=== PATIENT | female | born 1960 | race Caucasian/White ===

== ENCOUNTER 2016-08-28 | Outpatient (CLI) | payer MEDICAID | END 2016-08-28 00:09 | disposition critical access hospital (66) | CPT/HCPCS: A0425; A0427 ==

== ENCOUNTER 2016-08-28 00:28 | Emergency (ER) | payer MEDICAID ==
[2016-08-28] MEDS ORDERED: KETOROLAC 60 MG/2 ML VIAL IVP STA (02:08)
[2016-08-28] MEDS ORDERED: PROMETHAZINE INJ 12.5 MG in SODIUM CHLORIDE 0.9% 50 ML IV STA (02:08)
[2016-08-28] MEDS ORDERED: SODIUM CHLORIDE 0.9% 1,000 ML IV ONE (02:08)
[2016-08-28] MEDS ORDERED: HYDROmorphone 1 MG/ML SYRINGE IVP STA ×3 (02:09→04:10)
[2016-08-28] MEDS ORDERED: ONDANSETRON 4 MG/2 ML VIAL IVP STA (02:10)
[2016-08-28] MEDS ORDERED: PROMETHAZINE 25 MG/1 ML VIAL ONE (02:21)
[2016-08-28] MEDS ORDERED: HYDROmorphone 1 MG/ML SYRINGE ONE ×3 (02:21→04:12)
[2016-08-28] MEDS ORDERED: KETOROLAC 30 MG/ML VIAL ONE (02:21)
[2016-08-28] MEDS ORDERED: ONDANSETRON 4 MG/2 ML VIAL ONE (02:21)
[2016-08-28] MEDS ORDERED: SODIUM CHLORIDE 0.9% 500 ML IV ONE (04:09)
[2016-08-28] MEDS ORDERED: ACETAMINOPHEN 1,000 MG/100 ML 100 ML IV STA (04:12)
[2016-08-28] MEDS ORDERED: ACETAMINOPHEN 1,000 MG/100 ML 100 ML IV ONE (04:30)
== END 2016-08-28 05:09 | disposition home or self-care (01) ==
DX: G43.909 Migraine, unspecified, not intractable, without status migrainosus (principal); I10 Essential (primary) hypertension; M06.9 Rheumatoid arthritis, unspecified
CPT/HCPCS: 36415; 80053; 83690; 85025; 96365; 96375; 96376; 99284; J0131; J1170

== ENCOUNTER 2016-09-09 09:21 | Day surgery (SDC) | payer MEDICAID ==
[2016-09-09] MEDS ORDERED: fentaNYL 250 MCG/5 ML VIAL IVP ONE (11:23)
[2016-09-09] MEDS ORDERED: MIDAZOLAM 2 MG/2 ML VIAL IVP ONE (11:23)
[2016-09-09] MEDS ORDERED: LACTATED RINGERS 1,000 ML IV ONE ×2 (11:29→12:05)
== END 2016-09-09 09:22 | disposition home or self-care (01) ==
PROC: 0DBN8ZZ Excision of Sigmoid Colon, Via Natural or Artificial Opening Endoscopic (ICD-10-PCS; principal; 2016-09-09 11:45)
DX: Z12.11 Encounter for screening for malignant neoplasm of colon (principal); D12.5 Benign neoplasm of sigmoid colon; Z87.891 Personal history of nicotine dependence
CPT/HCPCS: 45380; J3010; J7120

== ENCOUNTER 2016-09-15 17:04 | Emergency (ER) | payer MEDICAID ==
[2016-09-15] MEDS ORDERED: diphenhydrAMINE INJ 50 MG/ML VIAL IVP STA (17:18)
[2016-09-15] MEDS ORDERED: PROCHLORPERAZINE 10 MG/2 ML VIAL IVP STA (17:18)
[2016-09-15] MEDS ORDERED: KETOROLAC 60 MG/2 ML VIAL IVP STA (17:18)
[2016-09-15] MEDS ORDERED: MAGNESIUM SULFATE 2 GRAM 50 ML IV ONE ×2 (17:18→17:29)
[2016-09-15] MEDS ORDERED: SODIUM CHLORIDE 0.9% 1,000 ML IV ONE (17:18)
[2016-09-15] MEDS ORDERED: KETOROLAC 30 MG/ML VIAL ONE (17:29)
[2016-09-15] MEDS ORDERED: PROCHLORPERAZINE 10 MG/2 ML VIAL ONE (17:29)
[2016-09-15] MEDS ORDERED: diphenhydrAMINE INJ 50 MG/ML VIAL ONE (17:29)
== END 2016-09-15 18:22 | disposition home or self-care (01) ==
DX: G43.909 Migraine, unspecified, not intractable, without status migrainosus (principal)

== ENCOUNTER 2016-10-13 15:52 | Emergency (ER) | payer MEDICAID ==
[2016-10-13] MEDS ORDERED: PROMETHAZINE 25 MG/1 ML VIAL IM STA (16:27)
[2016-10-13] MEDS ORDERED: KETOROLAC 60 MG/2 ML VIAL IM STA (16:27)
[2016-10-13] MEDS ORDERED: ONDANSETRON ODT 4 MG TABLET TL STA (16:28)
[2016-10-13] MEDS ORDERED: DEXAMETHASONE 10 MG/ML VIAL PO STA (16:28)
[2016-10-13] MEDS ORDERED: PROMETHAZINE 25 MG/1 ML VIAL ONE (16:29)
[2016-10-13] MEDS ORDERED: ONDANSETRON ODT 4 MG TABLET ONE (16:30)
[2016-10-13] MEDS ORDERED: KETOROLAC 60 MG/2 ML VIAL ONE (16:30)
[2016-10-13] MEDS ORDERED: DEXAMETHASONE 10 MG/ML VIAL ONE (16:30)
[2016-10-13] MEDS ORDERED: oxyCOD/ACETAMIN 5 MG/325 MG TABLET PO STA (17:57)
[2016-10-13] MEDS ORDERED: oxyCOD/ACETAMIN 5 MG/325 MG TABLET PO ONE (18:00)
== END 2016-10-13 18:10 | disposition home or self-care (01) ==
DX: R51 Headache (principal); M79.2 Neuralgia and neuritis, unspecified; B02.9 Zoster without complications; R11.2 Nausea with vomiting, unspecified
CPT/HCPCS: 96372; 99283; 99284; A9270; Q0162

== ENCOUNTER 2016-11-18 00:15 | Outpatient (CLI) | payer MEDICAID | END 2016-11-18 00:16 | disposition critical access hospital (66) | DX: G43.909 Migraine, unspecified, not intractable, without status migrainosus (principal) | CPT/HCPCS: A0425; A0429 ==

== ENCOUNTER 2016-11-18 00:35 | Emergency (ER) | payer MEDICAID ==
[2016-11-18] MEDS ORDERED: KETOROLAC 60 MG/2 ML VIAL IM STA (01:43)
[2016-11-18] MEDS ORDERED: HYDROcod/ACETAM 5/325 MG TABLET PO STA (01:43)
[2016-11-18] MEDS ORDERED: KETOROLAC 60 MG/2 ML VIAL ONE (01:45)
[2016-11-18] MEDS ORDERED: HYDROcod/ACETAM 5/325 MG TABLET ONE (01:45)
[2016-11-18] MEDS ORDERED: oxyCODONE 5 MG TABLET PO STA (03:55)
[2016-11-18] MEDS ORDERED: oxyCODONE 5 MG TABLET ONE (03:57)
== END 2016-11-18 04:08 | disposition home or self-care (01) ==
DX: R51 Headache (principal); H57.12 Ocular pain, left eye
CPT/HCPCS: 70450; 96372; 99284; A9270

== ENCOUNTER 2017-04-13 20:17 | Outpatient (CLI) | payer MEDICAID | END 2017-04-13 20:18 | disposition critical access hospital (66) | LOC: EMS 20:17 | PROVIDERS: ATTEND Surgery | DX: M79.601 Pain in right arm (principal) | CPT/HCPCS: A0425; A0429 ==

== ENCOUNTER 2017-04-13 20:39 | Emergency (ER) | payer MEDICAID ==
[2017-04-13] MEDS ORDERED: KETOROLAC 60 MG/2 ML VIAL IM STA (20:47)
[2017-04-13 20:49] VITALS: BP 131/76
[2017-04-13] MEDS ORDERED: KETOROLAC 60 MG/2 ML VIAL ONE (20:54)
--- NOTE | 2017-04-13 21:04 | ED Physician Documentation ---
PD HPI UPPER EXT INJURY - Stated complaint Stated Complaint: RT HAND PAIN - Chief complaint Chief Complaint: Ext Problem - History obtained from History obtained from: Patient, EMS - History of Present Illness Location: Right, Wrist Type of injury: Twist Where injury occurred: Home Timing - onset: Chronic Timing - duration: Months Timing - details: Gradual onset, Still present Improved by: Immobilization Worsened by: Moving, Palpating Associated symptoms: Tingling, Swelling Contributing factors: Prior ortho surgery Similar symptoms before: Work up / diagnostics, Treatment Recently seen: Clinic - Additonal information Additional information: Patient is a 56 year old female who is presenting to the emergency department for right wrist pain. patient states that she had trauma in there years ago. Patient states that she has had worsening pain in her wrist over the last month with increased swelling. ems state that patient had been drinking today. they state that she saw her pmd who told her to follow up outpatient. Patient states she called the ambulance since she didn't have a ride. Review of Systems Constitutional: reports: Myalgias. denies: Fever, Chills Eyes: denies: Loss of vision, Decreased vision Ears: denies: Ear pain, Drainage/discharge Nose: denies: Congestion Throat: denies: Dental pain / toothache, Sore throat Respiratory: denies: Cough GI: denies: Nausea, Vomiting : denies: Dysuria Skin: denies: Rash, Lesions, Abrasion (s) Musculoskeletal: reports: Extremity pain, Joint pain, Joint swelling Neurologic: reports: Numbness. 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 : None HEENT: None Psych: Anxiety Musculoskeletal: Chronic back pain Derm: None - Past Surgical History Past Surgical History: Yes General: Cholecystectomy, Appendectomy, Colonoscopy /CRUSHER PLANT OPERATOR: Hysterectomy - Present Medications Home Medications: Ambulatory Orders Medication Instructions Recorded Confirmed ALPRAZolam [Xanax] 0.25 mg PO Q6H 09/08/16 04/13/17 Hydrocodone/Acetaminophen 1 tab PO Q6HR PRN 09/08/16 04/13/17 [Hydrocodon-Acetaminoph 7.5-325] Ascorbic Acid [Vitamin C] 1,000 mg PO DAILY 09/09/16 04/13/17 [place]-3/Dha/Epa/Fish Oil [Fish Oil 1,000 mg PO DAILY 09/09/16 04/13/17 1,000 mg Softgel] Vitamin B Complex/Folic Acid 1 mg PO DAILY 09/09/16 04/13/17 [Vitamin B-100 Complex Tablet] - Allergies Allergies/Adverse Reactions: Allergies Allergy/AdvReac Type Severity Reaction Status Date / Time adhesive Allergy Intermediate Hives Verified 04/13/17 20:49 codeine [Codeine] Allergy Hives Verified 04/13/17 20:49 Sulfa (Sulfonamide Allergy Hives Verified 04/13/17 20:49 Antibiotics) chocolate AdvReac Intermediate migraine Uncoded 04/13/17 20:49 - Social History Does the pt smoke?: No Smoking Status: Never smoker Does the pt drink ETOH?: Yes Does the pt have substance abuse?: No - Immunizations Immunizations are current?: Yes - POLST Patient has POLST: No PD ED PE NORMAL - Vitals Vital signs reviewed: Yes - General General: Alert and oriented X 3, No acute distress - HEENT HEENT: Atraumatic, PERRL - Neck Neck: Supple, no meningeal sign - Cardiac Cardiac: RRR, No murmur - Respiratory Respiratory: No respiratory distress, Clear bilaterally - Abdomen Abdomen: Soft, Non tender - Neuro Neuro: Alert and oriented X 3, No motor deficit, No sensory deficit, Normal speech - Psych Psych: Normal mood, Normal affect PD ED PE EXPANDED - Derm Derm: Other (ecchymosis on wrist) - Extremities Extremities: Right wrist (tenderness, swelling and some ecchymosis of wrist) Results - Vitals Vitals: Vital Signs - 24 hr 04/13/17 20:45 Temperature 36.9 C Heart Rate 102 H Respiratory 20 Rate Blood Pressure 131/76 H O2 Saturation 96 Oxygen O2 Source Room air - Rads (name of study) wrist right Radiology: Final report received (severe first cmc joint osteoarthritis) PD MEDICAL DECISION MAKING - ED course Complexity details: reviewed old records, reviewed results, re-evaluated patient , considered differential, d/w patient ED course: Patient was seen and examined at bedside. Patient was treated with toradol for pain and sent for imaging. When patient returned the results were reviewed. Patient was found to have severe arthritis but no acute abnormality. Patient was placed in a velcro brace for comfort and was stable for discharge with outpatient follow up. Departure - Departure Disposition: 01 Home, Self Care Clinical Impression: Arthritis Condition: Good Instructions: ANTI-INFLAMMATORY, General, ED Arthritis Rheumatoid Follow-Up: Adam Gómez MD [Primary Care Provider] - Within 1 week Comments: Your symptoms today are being caused by arthritis. It is a chronic issue and is unlikely to improve. You should continue to ice the area and take motrin and tylenol for pain. You can wear the wrist brace for comfort. You should follow up with your doctor for further evaluation and care.
--- NOTE | 2017-04-13 21:43 | XRAY Preliminary Report ---
Exam: XR Wrist 4 View RT IMPRESSION: 1. Severe first CMC joint osteoarthritis. 2. No evidence of acute osseous abnormality. [facility] SITE ID: [id number]
--- NOTE | 2017-04-13 21:46 | XRAY Report ---
EXAM: RIGHT WRIST RADIOGRAPHY EXAM DATE: 04/13/2017 09:32 PM. CLINICAL HISTORY: Wrist pain. COMPARISON: None. TECHNIQUE: 4 views. FINDINGS: Bones: Normal. No fractures or bone lesions. Joints: Normal alignment. Severe joint space narrowing and proliferative changes are present in the f irst CMC joint. Soft Tissues: Normal. No soft tissue swelling. IMPRESSION: 1. Severe first CMC joint osteoarthritis. 2. No evidence of acute osseous abnormality. [facility] Referring Provider Line: [phone] SITE ID: [id number]
== END 2017-04-13 22:02 | disposition home or self-care (01) ==
LOC: EDUNIT# → ED 20:39
DX: M13.831 Other specified arthritis, right wrist (principal)
CPT/HCPCS: 96372; 99283; 99284

== ENCOUNTER 2017-05-29 20:10 | Emergency (ER) | payer MEDICAID ==
[2017-05-29] MEDS ORDERED: IPRATROPIUM/ALBUTEROL 3 ML NEB INH STA (20:32)
[2017-05-29] MEDS ORDERED: IPRATROPIUM/ALBUTEROL 3 ML NEB INH ONE (21:00)
[2017-05-29] MEDS ORDERED: ALBUTEROL NEB 2.5 MG/3 ML INH STA (21:28)
--- NOTE | 2017-05-29 21:56 | XRAY Preliminary Report ---
Exam: XR CHEST 2 VIEW PA/LAT IMPRESSION: No acute disease. [facility] SITE ID: [id number]
[2017-05-29] MEDS ORDERED: KETOROLAC 60 MG/2 ML VIAL IM STA (21:57)
--- NOTE | 2017-05-29 21:59 | XRAY Report ---
EXAM: CHEST RADIOGRAPHY EXAM DATE: 05/29/2017 09:23 PM. CLINICAL HISTORY: Productive cough. COMPARISON: 03/27/2016. TECHNIQUE: 2 views. FINDINGS: Lungs/Pleura: No definite localized infiltrate, consolidation, effusion, or pneumothorax. Mediastinum: Heart and mediastinal contours are unremarkable. Other: Degenerative changes. IMPRESSION: No acute disease. [facility] Referring Provider Line: [phone] SITE ID: [id number]
--- NOTE | 2017-05-29 22:00 | ED Physician Documentation ---
PD HPI DYSPNEA - Stated complaint Stated Complaint: SOA/COUGH - Chief complaint Chief Complaint: Resp - History obtained from History obtained from: Patient - History of Present Illness Timing - onset: How many days ago (3) Timing - details: Gradual onset, Still present Improved by: O2, Inhaler/neb, Steroids Associated symptoms: Cough, Wheezing. No: Fever, Chest pain / discomfort, Palpitations, Diaphoresis Similar symptoms before: Work up / diagnostics, Treatment, Follow up Recently seen: Clinic, Emergency Dept - Additional information Additional information: Patient is a 56 year old female with a history of copd who is presenting to the emergency department for wheezing and cough. Patient states that it has been going on for the last few days. Patient states that she is already on a steroid taper. Patient denies any fever or chills and states that she is no longer wheezing. Review of Systems Constitutional: denies: Fever, Chills Eyes: reports: Reviewed and negative Ears: denies: Ear pain, Drainage/discharge Nose: denies: Rhinorrhea / runny nose, Congestion, Sinus pressure / pain Throat: reports: Reviewed and negative Cardiac: denies: Chest pain / pressure, Palpitations Respiratory: reports: Cough, Wheezing GI: reports: Abdominal Pain. 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 : None HEENT: None Psych: Anxiety Musculoskeletal: Chronic back pain Derm: None - Past Surgical History Past Surgical History: Yes General: Cholecystectomy, Appendectomy, Colonoscopy /LAPPING MACHINE SET UP OPERATOR: Hysterectomy - Present Medications Home Medications: Ambulatory Orders Medication Instructions Recorded Confirmed ALPRAZolam [Xanax] 0.25 mg PO Q6H 09/08/16 04/13/17 Hydrocodone/Acetaminophen 1 tab PO Q6HR PRN 09/08/16 04/13/17 [Hydrocodon-Acetaminoph 7.5-325] Ascorbic Acid [Vitamin C] 1,000 mg PO DAILY 09/09/16 04/13/17 [place]-3/Dha/Epa/Fish Oil [Fish Oil 1,000 mg PO DAILY 09/09/16 04/13/17 1,000 mg Softgel] Vitamin B Complex/Folic Acid 1 mg PO DAILY 09/09/16 04/13/17 [Vitamin B-100 Complex Tablet] Albuterol Sulfate [Proventil Hfa 1 - 2 puffs INH Q4H PRN #1 inhaler 05/29/17 Inhaler] - Allergies Allergies/Adverse Reactions: Allergies Allergy/AdvReac Type Severity Reaction Status Date / Time adhesive Allergy Intermediate Hives Verified 05/29/17 20:23 codeine [Codeine] Allergy Hives Verified 05/29/17 20:23 Sulfa (Sulfonamide Allergy Hives Verified 05/29/17 20:23 Antibiotics) chocolate AdvReac Intermediate migraine Uncoded 05/29/17 20:23 - Social History Does the pt smoke?: No Smoking Status: Former smoker Does the pt drink ETOH?: Yes Does the pt have substance abuse?: No - Immunizations Immunizations are current?: Yes - POLST Patient has POLST: No PD ED PE NORMAL - Vitals Vital signs reviewed: Yes - General General: Alert and oriented X 3 - HEENT HEENT: Atraumatic, PERRL, Moist mucous membranes - Neck Neck: Supple, no meningeal sign, No JVD - Cardiac Cardiac: RRR, No murmur - Derm Derm: Normal color, Warm and dry, No rash - Extremities Extremities: No deformity, Normal ROM s pain, No edema, No calf tenderness / cord - Neuro Neuro: Alert and oriented X 3, No motor deficit, No sensory deficit, Normal speech - Psych Psych: Normal mood, Normal affect PD ED PE EXPANDED - Respiratory Respiratory: Accessory mm use, Wheezing, Right upper lobe, Left upper lobe. No : Retractions - Abdomen Abdomen: Tender to palpation, LLQ (mild tenderness to palpation of llq, also worse with leg lifts). No: Rebound, Guarding Results - Vitals Vitals: Vital Signs - 24 hr 05/29/17 05/29/17 05/29/17 20:23 20:59 22:10 Temperature 36.8 C Heart Rate 81 82 84 Respiratory 18 16 18 Rate Blood Pressure 115/69 127/63 O2 Saturation 96 94 05/29/17 22:31 Temperature Heart Rate 102 H Respiratory 18 Rate Blood Pressure 131/70 H O2 Saturation 100 Oxygen O2 Source Room air - Rads (name of study) chest x-ray Radiology: Final report received (no acute disease process) PD MEDICAL DECISION MAKING - ED course Complexity details: reviewed old records, reviewed results, re-evaluated patient , considered differential, d/w patient, d/w family ED course: Patient was seen and examined at bedside. Patient was started on three duonebs. imaging was ordered. when patient returned from imaging the results were reviewed and there was no infiltrate appreciated. Patient was still wheezing and treated with additional nebulizer treatments. After the treatments patient was re-evaluated. Patient stated that she was feeling much better and wanted to go home. She had minimal wheezes bilaterally but was 100% on room air. Patient was stable for discharge with outpatient follow up. Departure - Departure Disposition: Home, Self Care Clinical Impression: Moderate COPD (chronic obstructive pulmonary disease) Condition: Good Instructions: ED COPD Flare Follow-Up: Adam Gómez MD [Primary Care Provider] - Within 3 Days Prescriptions: Albuterol Sulfate [Proventil Hfa Inhaler] 1 - 2 puffs INH Q4H PRN #1 inhaler PRN Reason: Shortness Of Air/Wheezing Comments: Your symptoms today are being caused by an acute flare up of your copd. You should finish your course of steroids. In the acute phase you can use your inhaler every two hours as needed. You should followup with your doctor on thursday for further evaluation and care. You may return to the emergency department at any time for new, worsening or uncontrollable symptoms.
[2017-05-29] MEDS ORDERED: ALBUTEROL NEB 2.5 MG/3 ML INH ONE (22:03)
[2017-05-29] MEDS ORDERED: KETOROLAC 60 MG/2 ML VIAL ONE (22:24)
[2017-05-29 22:32] VITALS: BP 131/70
== END 2017-05-29 22:47 | disposition home or self-care (01) ==
LOC: ED 20:10
DX: J44.9 Chronic obstructive pulmonary disease, unspecified (principal); Z87.891 Personal history of nicotine dependence
CPT/HCPCS: 71020; 94640; 96372; 99283; J7613; J7620

== ENCOUNTER 2017-09-15 17:30 | Outpatient (CLI) | payer MEDICAID | END 2017-09-15 17:31 | disposition critical access hospital (66) | LOC: EMS 17:30 | PROVIDERS: ATTEND Surgery | DX: R55 Syncope and collapse (principal); R07.9 Chest pain, unspecified; R05 Cough; R11.0 Nausea | CPT/HCPCS: A0425; A0427 ==

== ENCOUNTER 2017-09-15 17:53 | Inpatient (IN) | payer MEDICAID ==
--- NOTE | 2017-09-15 18:24 | ED Physician Documentation ---
PD HPI URI - Stated complaint Stated Complaint: COUGH - Chief complaint Chief Complaint: Resp - History obtained from History obtained from: Patient, EMS - History of Present Illness Timing - onset: How many hours ago (1), Today Timing details: Abrupt onset (she was standing in the kitchen and then next aware of awakening on the floor. [place] sore in arms. Had been incontinent of urine. No tongue injuries. Had felt okay earlier in the day. After awakening, did hav esome repetitive coughing, but no dyspnea per se. No fevers nor headache. Remote history of seizures about 18 years ago and has been off seizure meds for over 10 years or more.) Associated symptoms: Dry cough. No: Fever, Chills, Nasal congestion, Chest pain , Dyspnea Contributing factors: No: Sick contact, Travel, Immunocompromised Similar symptoms before: Has not had sx before Recently seen: Not recently seen Review of Systems Constitutional: denies: Fever, Chills, Myalgias Nose: denies: Rhinorrhea / runny nose, Congestion Throat: denies: Sore throat Cardiac: denies: Chest pain / pressure Respiratory: reports: Cough. denies: Dyspnea Skin: denies: Rash, Lesions Musculoskeletal: denies: Neck pain, Back pain Neurologic: reports: Seizure (concerned about having seizure today. had had some alcohol today, denies drug use. 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 : None HEENT: None Psych: Anxiety Musculoskeletal: Chronic back pain Derm: None - Past Surgical History Past Surgical History: Yes General: Cholecystectomy, Appendectomy, Colonoscopy /MECHANICAL FITTER: Hysterectomy - Present Medications Home Medications: Ambulatory Orders Medication Instructions Recorded Confirmed ALPRAZolam [Xanax] 0.25 mg PO Q6H 09/08/16 04/13/17 Hydrocodone/Acetaminophen 1 tab PO Q6HR PRN 09/08/16 04/13/17 [Hydrocodon-Acetaminoph 7.5-325] Ascorbic Acid [Vitamin C] 1,000 mg PO DAILY 09/09/16 04/13/17 [place]-3/Dha/Epa/Fish Oil [Fish Oil 1,000 mg PO DAILY 09/09/16 04/13/17 1,000 mg Softgel] Vitamin B Complex/Folic Acid 1 mg PO DAILY 09/09/16 04/13/17 [Vitamin B-100 Complex Tablet] Albuterol Sulfate [Proventil Hfa 1 - 2 puffs INH Q4H PRN #1 inhaler 05/29/17 Inhaler] - Allergies Allergies/Adverse Reactions: Allergies Allergy/AdvReac Type Severity Reaction Status Date / Time adhesive Allergy Intermediate Hives Verified 05/29/17 20:23 codeine [Codeine] Allergy Hives Verified 05/29/17 20:23 Sulfa (Sulfonamide Allergy Hives Verified 05/29/17 20:23 Antibiotics) chocolate AdvReac Intermediate migraine Uncoded 05/29/17 20:23 - Social History Does the pt smoke?: No Smoking Status: Never smoker Does the pt drink ETOH?: Yes Does the pt have substance abuse?: No - Immunizations Immunizations are current?: Yes - POLST Patient has POLST: No PD ED PE NORMAL - Vitals Vital signs reviewed: Yes - General General: Alert and oriented X 3, No acute distress, Well developed/nourished - HEENT HEENT: Ears normal, Pharynx benign, Other (no tongue injuries. ) - Neck Neck: Supple, no meningeal sign, No adenopathy - Cardiac Cardiac: RRR, No murmur - Respiratory Respiratory: Clear bilaterally - Abdomen Abdomen: Soft, Non tender - Back Back: No CVA TTP - Derm Derm: Normal color, Warm and dry - Extremities Extremities: No deformity, No tenderness to palpate, Normal ROM s pain, No edema , No calf tenderness / cord - Neuro Neuro: Alert and oriented X 3, slip sheeter 2-12 intact, No motor deficit, No sensory deficit, Normal speech Eye Opening: Spontaneous Motor: Obeys Commands Verbal: Oriented GCS Score: 15 - Psych Psych: Normal mood, Normal affect Results - Vitals Vitals: Vital Signs - 24 hr 09/15/17 09/15/17 09/15/17 17:54 19:31 19:41 Temperature 36.5 C Heart Rate 97 96 Respiratory 18 20 Rate Blood Pressure 114/75 118/90 H O2 Saturation 97 98 09/15/17 09/15/17 09/15/17 20:01 20:34 21:06 Temperature 37 C Heart Rate 102 H 95 89 Respiratory 16 16 22 Rate Blood Pressure 130/92 H 117/70 95/62 O2 Saturation 96 97 96 09/15/17 22:20 Temperature Heart Rate 93 Respiratory 15 Rate Blood Pressure 106/65 O2 Saturation 96 Oxygen O2 Source Room air - Labs Labs: Laboratory Tests 09/15/17 09/15/17 09/15/17 19:32 19:32 20:08 WBC 5.6 RBC 3.83 L Hgb 12.6 Hct 37.4 MCV 97.6 MCH 32.9 H MCHC 33.7 RDW 13.3 Plt Count 168 MPV 7.4 L Neut # 2.9 Lymph # 2.1 Williams # 0.3 Eos # 0.2 Baso # 0.0 Absolute Nucleated RBC 0.00 Nucleated RBC % 0.0 Sodium 139 Potassium 3.8 Chloride 109 Carbon Dioxide 18 L Anion Gap 12.0 BUN 14 Creatinine 0.5 Estimated GFR (MDRD) 127 Glucose 95 Calcium 8.0 L Magnesium 2.0 Total Bilirubin 0.2 AST 35 ALT 38 Alkaline Phosphatase 59 Total Protein 7.1 Albumin 4.1 Globulin 3.0 Albumin/Globulin Ratio 1.4 Lipase 26 Urine Color YELLOW Urine Clarity CLEAR Urine pH 6.0 Ur Specific [place] 1.020 Urine Protein NEGATIVE Urine Glucose (UA) NEGATIVE Urine Ketones NEGATIVE Urine Occult Blood NEGATIVE Urine Nitrite POSITIVE H Urine Bilirubin NEGATIVE Urine Urobilinogen 0.2 (NORMAL) Ur Leukocyte Esterase NEGATIVE Urine RBC None Seen Urine WBC 0-3 Ur Squamous Epith Cells NONE SEEN Urine Bacteria Many H Ur Microscopic Review INDICATED Urine Culture Comments INDICATED Urine Opiates Screen NEGATIVE Ur Oxycodone Screen NEGATIVE Urine Methadone Screen NEGATIVE Ur Propoxyphene Screen NEGATIVE Ur Barbiturates Screen NEGATIVE Ur Tricyclics Screen NEGATIVE Ur Phencyclidine Scrn NEGATIVE Ur Amphetamine Screen NEGATIVE U Methamphetamines Scrn NEGATIVE U Benzodiazepines Scrn POSITIVE H Urine Cocaine Screen NEGATIVE U Cannabinoids Screen NEGATIVE Ethyl Alcohol 187.9 - Rads (name of study) head CT Radiology: Prelim report reviewed (no acute process), EMP read contemporaneously chest xray Radiology: Prelim report reviewed (no infiltrates) PD MEDICAL DECISION MAKING - ED course Complexity details: reviewed results, re-evaluated patient (She had seizure here in ED that was self-limited and lasted less than a minute. It did appear a true seizure generalized. Had post ictal phase then slowly aroused and became alert. This happened abain about 20 minutes later. Given Ativan IV and then Keppra loading dose 500 mg. I talked with Neurology at [facility], who agreed with Aly, and would give another 500 mg, then to oral dose 750 mg BID. He advised overnight admission and treatment. He did not see need for transfer at this time. ), considered differential, d/w patient Departure - Departure Disposition: 66 [facility] DC/Xfer Clinical Impression: Cough, Alcohol use disorder, Seizures, generalized convulsive Condition: Stable Record reviewed to determine appropriate education?: Yes
[2017-09-15] MEDS ORDERED: SODIUM CHLORIDE 0.9% 1,000 ML IV ONE (19:04)
[2017-09-15] MEDS ORDERED: MIDAZOLAM 2 MG/2 ML VIAL IVP STA (19:20)
[2017-09-15 19:39] LABS: BASOPHILS % (AUTO) 0.9 %; EOSINOPHILS # (AUTO) 0.2 10^3/uL (0.0-0.7); EOSINOPHILS % (AUTO) 2.8 %; HGB - HEMOGLOBIN 12.6 g/dL (12.0-16.0); LYMPHOCYTES # (AUTO) 2.1 10^3/uL (1.5-3.5); LYMPHOCYTES % (AUTO) 37.7 %; MEAN CORPUSCULAR HEMOGLOBIN 32.9 pg (27.0-31.0); MEAN CORPUSCULAR HGB CONC 33.7 g/dL (32.0-36.0); MEAN CORPUSCULAR VOLUME 97.6 fL (81.0-99.0); MEAN PLATELET VOLUME 7.4 fL (7.9-10.8); MONOCYTES # (AUTO) 0.3 10^3/uL (0.0-1.0); MONOCYTES % (AUTO) 6.2 %; NEUTROPHILS # (AUTO) 2.9 10^3/uL (1.5-6.6); NEUTROPHILS % (AUTO) 52.4 %; PLT - PLATELET COUNT 168 10^3/uL (130-450); RED BLOOD COUNT 3.83 10^6/uL (4.20-5.40); RED CELL DISTRIBUTION WIDTH 13.3 % (12.0-15.0); WHITE BLOOD COUNT 5.6 x10^3/uL (4.8-10.8)
[2017-09-15] MEDS ORDERED: LORazepam 2 MG/ML VIAL IVP STA ×4 (19:44→23:24)
[2017-09-15 19:53] LABS: ALBUMIN 4.1 g/dL (3.2-5.5); ALBUMIN/GLOBULIN RATIO 1.4 (1.0-2.2); BILIRUBIN,TOTAL 0.2 mg/dL (0.2-1.0); CREATININE 0.5 mg/dL (0.4-1.0); TOTAL PROTEIN 7.1 g/dL (6.7-8.2)
[2017-09-15 20:24] LABS: MUDS CUTOFF CONCENTRATIONS CUTOFF CONC BELOW:
[2017-09-15 20:29] LABS: BILIRUBIN,URINE NEGATIVE (NEGATIVE); GLUCOSE, URINE (UA) NEGATIVE (NEGATIVE); KETONES,URINE (UA) NEGATIVE (NEGATIVE); LEUKOCYTE ESTERASE, URINE NEGATIVE (NEGATIVE); NITRITE,URINE POSITIVE (NEGATIVE); OCCULT BLOOD,URINE NEGATIVE (NEGATIVE); PROTEIN,URINE NEGATIVE (NEGATIVE); UROBILINOGEN,URINE 0.2 (NORMAL) E.U./dL (NORMAL)
[2017-09-15 20:30] LABS: CLARITY,URINE CLEAR (CLEAR)
[2017-09-15] MEDS ORDERED: levETIRAcetam INJ 500 MG in SODIUM CHLORIDE 0.9% 100ML 100 ML IV STA ×2 (20:38→22:01)
[2017-09-15] MEDS ORDERED: LORazepam 2 MG/ML VIAL ONE ×2 (20:40→23:13)
[2017-09-15 20:42] LABS: AMPHETAMINE SCREEN,URINE NEGATIVE (NEGATIVE); BACTERIA,URINE Many /HPF (None Seen); BENZODIAZEPINES SCREEN, URINE POSITIVE (NEGATIVE); COCAINE SCREEN URINE NEGATIVE (NEGATIVE); METHADONE SCREEN, URINE NEGATIVE (NEGATIVE); METHAMPHETAMINES SCREEN, URINE NEGATIVE (NEGATIVE); OPIATE SCREEN, URINE NEGATIVE (NEGATIVE); OXYCODONE SCREEN, URINE NEGATIVE (NEGATIVE); PROPOXYPHENE SCREEN, URINE NEGATIVE (NEGATIVE); RBC,URINE None Seen /HPF (0-5); SQUAMOUS EPITHELIAL CELL,UR NONE SEEN (<= Few); TRICYCLIC ANTIDEPRESSANT,URINE NEGATIVE (NEGATIVE)
--- NOTE | 2017-09-15 21:24 | XRAY Report ---
EXAM: CHEST RADIOGRAPHY EXAM DATE: 09/15/2017 08:53 PM. CLINICAL HISTORY: Chest pain left sided. COMPARISON: 05/29/2017. TECHNIQUE: 2 views. FINDINGS: Mildly limited exam due to technique. Lungs/pleura: No focal opacities evident. No pleural effusion. No pneumothorax. Normal volumes. Mediastinum: Heart and mediastinal contours are within normal limits. Other: None. IMPRESSION: No acute cardiopulmonary abnormality. [facility] Referring Provider Line: [phone] SITE ID: [id number]
--- NOTE | 2017-09-15 21:24 | XRAY Preliminary Report ---
Exam: XR CHEST 2 VIEW X-RAY IMPRESSION: No acute cardiopulmonary abnormality. [facility] SITE ID: [id number]
--- NOTE | 2017-09-15 21:26 | CT Report ---
EXAM: CT HEAD EXAM DATE: 09/15/2017 08:52 PM. CLINICAL HISTORY: Seizure today. COMPARISON: 11/18/2016. TECHNIQUE: Multiaxial CT images were obtained from the foramen magnum to the vertex. Reformats: Coron al. IV contrast: None. In accordance with CT protocol optimization, one or more of the following dose reduction techniques w ere utilized for this exam: automated exposure control, adjustment of mA and/or KV based on patient s ize, or use of iterative reconstructive technique. FINDINGS: Parenchyma: No intraparenchymal hemorrhage. No evidence of mass, midline shift, or CT findings of inf arction. Chandler-white differentiation is distinct. Extraaxial Spaces: Normal for age. No subdural or epidural collections identified. Ventricles: Normal in size and position. Sinuses and Orbits: Imaged paranasal sinuses, orbits, and mastoids show no significant abnormality. Bones: No evidence of fracture or calvarial defect. Other: None. IMPRESSION: No acute intracranial CT abnormality. [facility] Referring Provider Line: [phone] SITE ID: [id number]
[2017-09-15] MEDS ORDERED: ONDANSETRON 4 MG/2 ML VIAL IVP PRN (23:28)
[2017-09-15] MEDS ORDERED: TEMAZEPAM 15 MG CAPSULE PO PRN (23:28)
[2017-09-16] MEDS ORDERED: ALBUTEROL 6.7 GM INHALER INH PRN (00:18)
[2017-09-16] MEDS: SODIUM CHLORIDE FLUSH 0.9% 10 ML SYRINGE IVP PRN ×3 (00:38→09:28)
[2017-09-16] MEDS: chlordiazePOXIDE 25 MG CAPSULE PO SCH ×3 (00:38→09:28)
[2017-09-16] MEDS: NITROFURANTOIN MACRO 100 MG CAPSULE PO SCH ×2 (00:38→09:28)
[2017-09-16] MEDS: LORazepam 2 MG/ML VIAL IVP PRN ×2 (00:38→04:53)
[2017-09-16] MEDS ORDERED: MORPHINE 10 MG/ML VIAL IVP SCH (00:40)
[2017-09-16] MEDS: HYDROcod/ACETAM 5/325 MG TABLET PO PRN ×2 (00:44→05:43)
--- NOTE | 2017-09-16 05:10 | HISTORY & PHYSICAL EXAMINATION ---
DATE OF SERVICE: 09/15/2017 Physician: Liana Purvis MD DATE OF ADMISSION: 09/15/2017 CHIEF COMPLAINT: Seizures. PRIMARY CARE PHYSICIAN: Dr. Gómez HISTORY OF PRESENT ILLNESS: The patient is a 57-year-old, white female with past medical history of COPD, migraine headaches, chronic back pain, and arthritis. She does have remote history of seizures and, in the past, she was on Depakote; however, she has not had a seizure for more than 10 years and currently she does not take any antiepileptic. The patient does have history of alcohol abuse. In past ER visits, she was described as having a history of binge drinking; however, when I interviewed her today, she adamantly denied regular alcohol use. At the ER, her blood alcohol level was 187.9. The patient stated that she had 1 glass of wine with dinner. Again, she adamantly denied history of alcohol use. She also denied history of substance abuse and she denied any change in her regular medications. Regarding the circumstance of admission, she was at her home, one of her neighbors was visiting with her and having coffee after dinner. The patient was washing dishes, standing at her kitchen sink, and that is the last thing she remembers. Subsequently, she passed out and was brought to the ER by ambulance. The patient also reports that somehow her sister, Idalia, was on the scene as well and administered CPR. There are no further details regarding this issue. The patient also does not give a reasonable explanation how Idalia got there, as initially she stated her neighbor was there, visiting. In any case, after the patient arrived to the ER , she had several short episodes of witnessed, self resolving, seizure-like activities. In particular, when I was at the bedside, she was in a sitting position. I asked her a question. She did not answer. She closed her eyes, tensed her upper arms in a spastic like position, and became unresponsive. This episode lasted for about 30-40 seconds and then self resolved. When the episode resolved, the patient opened her eyes. She did not have any postictal- like mental status change. She was immediately alert and oriented; however, stated that she lost consciousness and she did not remember the event. Notably, during her prior seizure-like episodes, there was no urinary incontinence, tongue biting, and when she fell at her home she suffered no injury. Upon presentation to the ER, as mentioned, the patient had seizure-like activities. She was hemodynamically stable and afebrile. Laboratories showed blood alcohol level of 187, otherwise unremarkable. Urinalysis showed bacteria and nitrites; however, when I asked the patient she did not have any urinary complaints. CT scan of the brain showed no abnormality. Chest x-ray was unremarkable as well. When I discussed this case with the ER physician, Dr. Duarte, I requested the case to be run by the on-call neurologist from [place], given the fact that the patient had ongoing seizures in the ER. Neurology's opinion was that this patient should be admitted to [facility] and no transfer was recommended. They recommended outpatient neurology followup. It was also recommended to give this patient Keppra. PAST MEDICAL HISTORY: History of alcohol use; remote history of seizures, unknown details; COPD, history of migraine headaches, chronic low back pain, arthritis/sciatica. PAST SURGICAL HISTORY: Status post cholecystectomy, status post appendectomy, status post hysterectomy. OUTPATIENT MEDICATIONS Medication reconciliation is pending. Per previous record, the patient was on: 1. Vitamin supplements. 2. Hydrocodone. 3. Albuterol inhaler. 4. Xanax. ALLERGIES 1. ADHESIVE TAPE. 2. CODEINE. 3. SULFA. 4. CHOCOLATE. CODE STATUS: FULL CODE. FAMILY HISTORY: Reviewed, noncontributory. SOCIAL HISTORY: The patient quit smoking about 5 years ago. She lives independently. She admits to occasional alcohol use. She denied substance abuse. REVIEW OF SYSTEMS: Please see pertinent positives listed above at history of present illness. The patient did not report additional complaints on the 12-point review. PHYSICAL EXAMINATION VITAL SIGNS: Blood pressure 100/60, respiratory rate 18, oxygen saturation 96% on room air, heart rate between 80 and 90, temperature 37 Celsius. GENERAL: The patient is a well-developed female who was not in acute distress. Notably, she had a seizure-like activity during my exam as described above at history of present illness. NEUROLOGIC: The patient was alert, oriented answered my questions appropriately. Following short seizure-like activity, she was not postictal, had no focal neurologic deficits or lateralizing signs. PSYCHIATRIC: Cooperative. No agitation, no sedation. CARDIOVASCULAR: S1, S2 were regular. No pathologic murmur. RESPIRATORY: Good air entry throughout without wheezes or crackles. MUSCULOSKELETAL: Atraumatic, no injury whatsoever. Looking at the chest, I did not see any signs consistent with CPR. There was no redness. No muscle tenderness. LYMPHATIC: No lymphedema. SKIN: No jaundice. No pallor. ABDOMEN: Soft, benign, nontender. Bowel tones present. ASSESSMENT AND PLAN 1. The patient is a 57-year-old female who is getting admitted with alcohol intoxication and seizure-like activities. At this point the most likely possibility is substance/alcohol related seizure, which could be either intoxication seizure or withdrawal seizure. It is not known really how much alcohol this patient drinks. What she tells me is somewhat inconsistent with prior medical records and ER visits. Additional possibility is pseudoseizure. It is somewhat inconsistent that the patient did not have any postictal period after seizure-like activity. In any case, she is getting admitted and closely monitored in the ICU setting, given the fact that she had at least 4 seizure-like activities since she presented. We will order p.r.n. Ativan, monitor her with aspiration precautions and seizure precautions. Per [facility] recommendation , the patient received Keppra load 1 gram IV and we will continue with 750 mg b.i.d., which was recommended by the neurologist. In addition, it was recommended that the patient follows up as an outpatient with Neurology. Regarding history of alcohol use, I will start a small dose of Librium with holding parameters. 2. We will continue albuterol inhaler for a history of chronic obstructive pulmonary disease. 3. We will try to obtain outpatient medication list and I will attempt to continue unchanged. Notably, the patient was on opiate/hydrocodone for arthritis- like symptoms and withdrawal from opiate could also cause seizures. I will give small dose morphine to prevent further seizures if opiates would be a culprit here, and we will continue oxycodone as needed. 4. Patient will be monitored on telemetry. She will receive DVT prophylaxis. Further plan will depend on the clinical course. 5. Code status is FULL CODE, which was discussed with the patient. ATTESTATION: I certify that based on this patient's presentation, ER workup and prognosis the reasonable expectation is that she will be inpatient as she requires more than 24 hours hospital stay, she will, however, be discharged or transferred to another facility within 96 hours. Time spent in the care of this patient was 55 minutes. TD: 09/16/2017 05:09 RUDDY
[2017-09-16] MEDS ORDERED: SODIUM CHLORIDE FLUSH 0.9% 10 ML SYRINGE IVP SCH (06:00)
[2017-09-16 06:03] VITALS: BP 106/65
[2017-09-16] MEDS ORDERED: cefTRIAXone 1 GM in SODIUM CHLORIDE 0.9% MINIBAG 100 ML IV SCH (07:00)
[2017-09-16] MEDS ORDERED: ALBUTEROL NEB 2.5 MG/3 ML INH PRN (07:23)
[2017-09-16] MEDS ORDERED: POLYETHYLENE GLYCOL 3350 17 GM PACKET PO SCH (09:00)
[2017-09-16] MEDS ORDERED: ENOXAPARIN 40 MG/0.4 ML SYRINGE SUBQ SCH (09:00)
[2017-09-16] MEDS ORDERED: levETIRAcetam 250 MG TABLET PO SCH (09:00)
--- NOTE | 2017-09-16 09:13 | Discharge Plan ---
Discharge Plan Disposition: Home, Self Care Condition: Stable Prescriptions: levETIRAcetam [Keppra] 750 mg PO BID #60 tablet Nitrofurantoin [Macrobid] 100 mg PO DAILY #8 capsule Diet: Regular Activity Restrictions: Activity as Tolerated Shower Restrictions: No Driving Restrictions: Yes (no driving until cleared by a Neurologist since you are having seizures) Additional Instructions or Follow Up instructions: You were brought into the hospital because you were having exam findings where you were bringing your arms up in front of your body, closing your eyes, clenched fist, and unresponsive to voice. Since you have a history of seizure disorder, it is been postulated that you have recurrence of your seizures. We have spoken to the neurologist who is on-call at [facility]. That is the contract we have with neurology specialty services. They have recommended bringing you into the hospital overnight. Starting you on a new seizure medicine. This morning you are awake. Eating your breakfast. You have not had any further "seizures" since you were admitted. We would like you to see your primary care provider in follow-up. Dr. Adam Gómez needs to refer you to be seen by neurology again. You may need another EEG to see if this is truly seizures or something else. In the meantime, you cannot drive. If these are seizures, they may happen while driving. Do not drive until you are seen by neurology. No Smoking: If you smoke, Please STOP! Call for help. Follow-up with: Adam Gómez MD [Primary Care Provider] -
== END 2017-09-16 10:00 | disposition home or self-care (01) | DRG 101 ==
LOC: EDUNIT# → SUPCPDRO 17:53 → ED 17:53 → UNDOADMIN 23:28 → ICU 23:28
PROVIDERS: ADMIT Internal Medicine; ATTEND Internal Medicine
DX: R56.9 Unspecified convulsions (principal); F10.129 Alcohol abuse with intoxication, unspecified; Y90.6 Blood alcohol level of 120-199 mg/100 ml; J44.9 Chronic obstructive pulmonary disease, unspecified; G43.909 Migraine, unspecified, not intractable, without status migrainosus; G89.29 Other chronic pain; M54.30 Sciatica, unspecified side; M19.90 Unspecified osteoarthritis, unspecified site; Z79.891 Long term (current) use of opiate analgesic; Z79.51 Long term (current) use of inhaled steroids; Z79.899 Other long term (current) drug therapy
CPT/HCPCS: 36415; 70450; 71046; 80053; 80306; 80320; 81001; 81003; 83605; 83690; 83735; 84146; 85025; 87086; 87150; 93005; 99285

== ENCOUNTER 2017-09-24 13:43 | Outpatient (CLI) | payer MEDICAID | END 2017-09-24 13:44 | disposition home or self-care (01) | LOC: DI 13:43 | PROVIDERS: ATTEND Internal Medicine | DX: Z53.9 Procedure and treatment not carried out, unspecified reason (principal) ==

== ENCOUNTER 2017-10-29 12:00 | Day surgery (SDC) | payer MEDICAID ==
--- NOTE | 2017-10-29 12:40 | ED Physician Documentation ---
PD HPI ABD PAIN - Stated complaint Stated Complaint: LUMP ON STOMACH - Chief complaint Chief Complaint: Abd Pain - History obtained from History obtained from: Patient - History of Present Illness Timing - onset: Other (For the last months she has had a palpable painful mass in the subcutaneous tissues of the right upper quadrant. It is worse if she bends over forward but unrelated to any problems with her bowels per se. She has not had any nausea vomiting diarrhea or the patient. She did have a remote laparoscopic cholecystectomy 17 years ago.) Review of Systems Ten Systems: 10 systems reviewed and negative Constitutional: denies: Fever, Chills, Fatigue Cardiac: denies: Chest pain / pressure, Palpitations Respiratory: denies: Dyspnea, Cough GI: denies: Nausea, Vomiting, Constipation, Diarrhea PD PAST MEDICAL HISTORY - Past Medical History Cardiovascular: None Respiratory: COPD Neuro: Headache/migraine Endocrine/Autoimmune: None GI: None RAMP SERVICE MAN: None : None HEENT: None Psych: Anxiety Musculoskeletal: Chronic back pain Derm: None - Past Surgical History Past Surgical History: Yes General: Cholecystectomy, Appendectomy, Colonoscopy /RAMP SERVICE MAN: Hysterectomy - Present Medications Home Medications: Ambulatory Orders Medication Instructions Recorded Confirmed ALPRAZolam [Xanax] 0.25 mg PO TID PRN 09/08/16 10/29/17 Hydrocodone/Acetaminophen 1 tab PO TID PRN MDD 3 tabs 09/08/16 10/29/17 [Hydrocodone-Acetamin 7.5-325] Ascorbic Acid [Vitamin C] 1,000 mg PO DAILY 09/09/16 10/29/17 [place]-3/Dha/Epa/Fish Oil [Fish Oil 1,000 mg PO DAILY 09/09/16 10/29/17 1,000 mg Softgel] Albuterol Sulfate [Proventil Hfa 1 - 2 puffs INH Q4H PRN #1 inhaler 05/29/17 Inhaler] levETIRAcetam [Keppra] 750 mg PO BID #60 tablet 09/16/17 10/29/17 Calcium Carbonate [Fmbn-Icw-363] 500 mg PO DAILY 10/29/17 10/29/17 Cholecalciferol (Vitamin D3) 1,000 unit PO DAILY 10/29/17 10/29/17 [Vitamin D3] Gabapentin [Neurontin] 100 mg PO QPM 10/29/17 10/29/17 Multivitamin [Multiple Vitamins] 1 each PO DAILY 10/29/17 10/29/17 - Allergies Allergies/Adverse Reactions: Allergies Allergy/AdvReac Type Severity Reaction Status Date / Time adhesive Allergy Intermediate Hives Verified 10/29/17 12:08 codeine [Codeine] Allergy Hives Verified 10/29/17 12:08 Sulfa (Sulfonamide Allergy Hives Verified 10/29/17 12:08 Antibiotics) chocolate AdvReac Intermediate migraine Uncoded 10/29/17 12:08 - Social History Does the pt smoke?: No Smoking Status: Former smoker Does the pt drink ETOH?: Yes Does the pt have substance abuse?: No - Family History Family history: reports: Non contributory - Immunizations Immunizations are current?: Yes - POLST Patient has POLST: No PD ED PE NORMAL - Vitals Vital signs reviewed: Yes - General General: Alert and oriented X 3, No acute distress - HEENT HEENT: PERRL, EOMI - Neck Neck: Supple, no meningeal sign, No bony TTP - Cardiac Cardiac: RRR, No murmur - Respiratory Respiratory: No respiratory distress, Clear bilaterally - Abdomen Abdomen: Soft, Other (She is tender in the right upper quadrant with a suggestion of a deep subcutaneous mass. There is no overlying skin changes, redness, warmth.) - Back Back: No CVA TTP, No spinal TTP - Derm Derm: Normal color, Warm and dry - Extremities Extremities: No edema, No calf tenderness / cord - Neuro Neuro: Alert and oriented X 3, Normal speech - Psych Psych: Normal mood, Normal affect Results - Vitals Vitals: Vital Signs - 24 hr 10/29/17 10/29/17 12:05 14:30 Temperature 36.9 C Heart Rate 86 78 Respiratory 16 16 Rate Blood Pressure 119/82 H 122/72 O2 Saturation 99 97 Oxygen O2 Source Room air - EKG (time done) 1433 Rate: Rate (enter#) (73) Rhythm: NSR [place]: Normal Intervals: Normal SC QRS: Normal Ischemia: Q waves (small, inf). No: ST elevation c/w ischemia Computer interpretation: Agree with computer - Labs Labs: Laboratory Tests 10/29/17 10/29/17 10/29/17 13:07 13:07 13:07 WBC 7.3 RBC 3.96 L Hgb 13.3 Hct 38.5 MCV 97.2 MCH 33.5 H MCHC 34.5 RDW 13.0 Plt Count 292 MPV 6.9 L Neut # 4.7 Lymph # 2.0 [place] # 0.4 Eos # 0.1 Baso # 0.1 Absolute Nucleated RBC 0.00 Nucleated RBC % 0.0 PT 11.4 INR 1.0 APTT 29.2 Sodium 138 Potassium 3.7 Chloride 108 Carbon Dioxide 20 L Anion Gap 10.0 BUN 16 Creatinine 0.5 Estimated GFR (MDRD) 127 Glucose 101 H Calcium 9.3 Total Bilirubin 0.6 AST 26 ALT 55 Alkaline Phosphatase 78 Total Protein 7.5 Albumin 4.6 Globulin 2.9 Albumin/Globulin Ratio 1.6 Lipase 27 - Rads (name of study) RUQ sono Radiology: EMP read contemporaneously (There is a hernia with fat in it with a 1 cm neck.) PD MEDICAL DECISION MAKING - ED course ED course: 57-year-old woman with right upper quadrant hernia and a lot of pain, no bowel in it. N.p.o. since 8 AM. She would like it fixed emergently and I spoke with the on-call surgeon, Dr. Strong at 1:50 PM. Departure - Departure Disposition: ED Transfer to [facility] Clinical Impression: Abdominal hernia Qualifiers: Hernia type: incisional Obstruction and gangrene presence: without obstruction or gangrene Qualified Code(s): K43.2 - Incisional hernia without obstruction or gangrene Condition: Stable Discharge Date/Time: 10/29/17 15:14
[2017-10-29] MEDS ORDERED: IBUPROFEN 800 MG TABLET PO STA (12:56)
[2017-10-29 13:14] LABS: BASOPHILS # (AUTO) 0.1 10^3/uL (0.0-0.1); BASOPHILS % (AUTO) 1.1 %; EOSINOPHILS # (AUTO) 0.1 10^3/uL (0.0-0.7); EOSINOPHILS % (AUTO) 1.1 %; HGB - HEMOGLOBIN 13.3 g/dL (12.0-16.0); LYMPHOCYTES % (AUTO) 27.5 %; MEAN CORPUSCULAR HEMOGLOBIN 33.5 pg (27.0-31.0); MEAN CORPUSCULAR HGB CONC 34.5 g/dL (32.0-36.0); MEAN CORPUSCULAR VOLUME 97.2 fL (81.0-99.0); MEAN PLATELET VOLUME 6.9 fL (7.9-10.8); MONOCYTES # (AUTO) 0.4 10^3/uL (0.0-1.0); MONOCYTES % (AUTO) 5.9 %; NEUTROPHILS # (AUTO) 4.7 10^3/uL (1.5-6.6); NEUTROPHILS % (AUTO) 64.4 %; PLT - PLATELET COUNT 292 10^3/uL (130-450); RED BLOOD COUNT 3.96 10^6/uL (4.20-5.40); WHITE BLOOD COUNT 7.3 x10^3/uL (4.8-10.8)
[2017-10-29 13:27] LABS: ALBUMIN 4.6 g/dL (3.2-5.5); ALBUMIN/GLOBULIN RATIO 1.6 (1.0-2.2); BILIRUBIN,TOTAL 0.6 mg/dL (0.2-1.0); CALCIUM 9.3 mg/dL (8.5-10.3); CREATININE 0.5 mg/dL (0.4-1.0); TOTAL PROTEIN 7.5 g/dL (6.7-8.2)
[2017-10-29] MEDS ORDERED: MORPHINE 10 MG/ML VIAL IVP STA (13:52)
--- NOTE | 2017-10-29 13:58 | Ultrasound Report ---
LIMITED ABDOMINAL ULTRASOUND: 10/29/2017 CLINICAL INDICATION: Palpable painful mass, right upper quadrant. TECHNIQUE: Real-time scanning was performed with assistance representative static images obtained. FINDINGS: Ultrasound of the palpable mass identified by the patient was performed. At this site, there is an abdominal wall hernia with hernia neck measuring 1 cm. Fat is seen in the hernia sac. No bowel is identified. IMPRESSION: RIGHT UPPER QUADRANT HERNIA, CONTAINING FAT, WITHOUT EVIDENCE OF BOWEL HERNIATION AT THIS TIME. THE HERNIA NECK MEASURES APPROXIMATELY 1 CM. TD: 10/29/2017 13:57
[2017-10-29] MEDS ORDERED: ceFAZolin 2 GM in SODIUM CHLORIDE 0.9% MINIBAG 100 ML IV STA (14:28)
[2017-10-29] MEDS ORDERED: LACTATED RINGERS 1,000 ML IV STA (14:28)
[2017-10-29] MEDS ORDERED: BUPIVACAINE 0.5%-EPI 1:200000 PF 10 ML VIAL ONE ×2 (14:56→16:08)
[2017-10-29 15:13] LABS: PT - PROTHROMBIN TIME 11.4 secs (9.9-12.6)
[2017-10-29] MEDS ORDERED: ceFAZolin 1 GM VIAL ONE (15:35)
[2017-10-29] MEDS ORDERED: LACTATED RINGERS 1,000 ML IV ONE (15:39)
[2017-10-29] MEDS ORDERED: BUPIVACAINE 0.5%-EPI 1:200000 PF 30 ML VIAL SUBQ ONE ×2 (15:39)
[2017-10-29] MEDS ORDERED: PROPOFOL 200 MG/20 ML VIAL IVP ONE (16:24)
[2017-10-29] MEDS ORDERED: ROCURONIUM 50 MG/5 ML VIAL IVP ONE (16:24)
[2017-10-29] MEDS ORDERED: LIDOCAINE-MPF 2% 5 ML VIAL IM ONE (16:24)
[2017-10-29] MEDS ORDERED: fentaNYL 250 MCG/5 ML VIAL IVP ONE (16:24)
[2017-10-29] MEDS ORDERED: KETOROLAC 15 MG/ML VIAL ONE (16:41)
[2017-10-29] MEDS: HYDROmorphone 1 MG/ML SYRINGE ONE ×4 (16:47→17:13)
--- NOTE | 2017-10-29 16:49 | HISTORY & PHYSICAL EXAMINATION ---
DATE OF SERVICE: 10/29/2017 Physician: Dc Strong MD IDENTIFICATION: This is a 57-year-old woman who came to the emergency room complaining of epigastric pain and a lump. You can barely palpate the lump. She was evaluated by the ER physician, found to have what appears to be an incarcerated epigastric port site hernia from her epigastric port for her laparoscopic cholecystectomy 18 years ago. She said she has noticed the problem for 3 weeks, but it got acutely worse yesterday and was real bad today, so she had her sister bring her to the hospital. Her last meal was last night. ALLERGIES SHE SAYS SHE IS ALLERGIC TO: 1. CODEINE. 2. SULFA. 3. TAPE. 4. CHOCOLATE. MEDICATIONS Include: 1. Hydrocodone/Tylenol 7.5/325 t.i.d. 2. Alprazolam 0.25 mg 1-2 daily. 3. Keppra 750 mg b.i.d. 4. Proventil HFA. 5. Vitamins. OPERATIONS Include: 1. Laparoscopic cholecystectomy. 2. Appendectomy. 3. Hysterectomy. PAST MEDICAL HISTORY: She has a history of plus/minus hypertension. Denies diabetes or tuberculosis. Says she does not have seizures, but she says Keppra is for seizures, which is a little bit curious. She said the last time she had a problem was over a month ago. She does not smoke. Does not use alcohol. Has no history of thromboembolic disease, and she has not had any blood transfusions. SOCIAL HISTORY: She is . She has 2 children, one has cerebral palsy and she does not want us to talk to that child. The other one is mad at her and she does not know his phone number. Her sister Kajal's phone number is [phone]. That is who brought her here, she is probably going to be the one who takes her home. The option of going home and lining herself up with a local surgeon versus having me, the [facility] surgeon, repair this is discussed. She wants it fixed. She is a little bit anxious, and so that is what we decided to do. REVIEW OF SYSTEMS: Negative for NV. Negative for angina. Negative for stroke. Positive for COPD. Negative for GI problems, except as in present illness, which really probably is not a GI problem. Negative for problems. Negative for skin problems such as psoriasis. Negative for blood problems such as hepatitis. Positive for musculoskeletal disorder, she says that is why she takes the narcotics for her sciatica and for rheumatoid arthritis. Negative for lymphatic problems. Negative for endocrine problems. Positive for anxiety and migraines as far as neurological. PHYSICAL EXAMINATION GENERAL: This is a pleasant lady. VITAL SIGNS: ER vital signs are recorded and are okay. HEENT: Appears normal. NECK: Without jugular venous distention, masses, or bruits. CHEST: Clear. BREASTS: Not examined. HEART: Regular rate and rhythm, a little bit tachycardic without rub, gallop, or murmur. ABDOMEN: A little bit overweight. Right next to her epigastric port site scar there is tenderness. I did not push down real hard because she says it hurts real bad. She had an ultrasound that shows this piece of incarcerated fat there. She has no groin hernias that I can detect. GENITOURINARY/RECTAL/PEDAL PULSE: Not done. EXTREMITIES: Her feet are warm. NEUROLOGIC: Normal for motor, sensory, speech. I presume she walked in here. IMPRESSION: A lady who is a little bit anxious who has this port site hernia, which she prefers to have fixed today because she said it hurts her real bad. I told her we would take care of it for her, try to get her home this evening. Will send her home on pain pills and antibiotics. I did tell her she would have to go by [employer] and get Myranda's Kefir and take that. She already has pain pills at home, I told her she could supplement the narcotics with ibuprofen and take the other medicines and she should be okay. Will send her home on Keflex 500 q.i.d. for 4-5 days also. cc: Adam Gómez MD TD: 10/29/2017 15:25
[2017-10-29] MEDS ORDERED: ONDANSETRON 4 MG/2 ML VIAL ONE (17:40)
[2017-10-29] MEDS ORDERED: HYDROcod/ACETAM 5/325 MG TABLET ONE (17:48)
[2017-10-29 18:13] VITALS: BP 92/48
--- NOTE | 2017-10-29 19:33 | OPERATIVE REPORT ---
DATE OF SERVICE: 10/29/2017 Physician: Dc Strong MD PREOPERATIVE DIAGNOSIS: Incarcerated epigastric, probable port site hernia with fat in it. POSTOPERATIVE DIAGNOSIS: Incarcerated epigastric, probable port site hernia with fat in it. NAME OF PROCEDURE: Repair of hernia. SURGEON: Dc Strong MD CHILD DEVELOPMENT ASSOCIATE TEACHER: color laboratory technician. ANESTHESIA: General. INDICATIONS FOR PROCEDURE: A painful hernia in this lady and the options of going home and seeing local surgeons later versus having me take it out, me being a [TIME: 00:32] surgeon, she chose to have it taken care of today. DESCRIPTION OF PROCEDURE: Informed consent was obtained. She was taken to the operating room. She had been given preoperative antibiotics. SCDs were placed. She was given a general anesthetic, and then I prepped and draped in a sterile fashion. After appropriate timeout was accomplished, I had previously marked the spot. I made a transverse incision probably about an inch and a half, maybe 2 inches long, over the area of the mass through the skin and subcutaneous tissue. I put a self-retaining Weitlaner retractor and dissected down to the mass, went around it. It had a very small neck, a centimeter defect and chunks of fat sticking out. It was about 2 inches x 1-1/2 inch x 1 inch. Anyhow, I tried to gently reduce it. It was not going to happen, so I used a right angle and clamp dissection to ligate the base of it and take it in little pieces in case there was bowel nearby, which there was not any. Once I got everything tied off with 3-0 Vicryl sutures and had the chunks of fat taken off, I told them they did not need to send it to Pathology. Looked at the small hole. It was way smaller than the tip of my pinky. I used #0 Ethibond suture, 2 simples and 2 [id number], to secure this fascial defect. I did not feel that I needed to reinforce it with mesh. Irrigated with antibiotics and then numbed her up with 10 mL of local anesthetic at the fascial level. I then closed the deep fat with interrupted 3-0 Vicryl on a large needle. I then used interrupted 3-0 Vicryl deep subcuticular skin stitches to take tension off the skin. With each layer of closure, I irrigated with a mixture of Ancef and saline, about a gram of Ancef and 300 mL of saline, and put skin kaylah in. Then, I used 10 mL of the local anesthetic in the subcutaneous tissue. We put a Velcro binder on her because of her history of TAPE ALLERGY. We put dry 4 x 4's and an ABD on and secured the Velcro binder and took her to the recovery room in satisfactory condition. Estimated blood loss was probably 1-2 mL. The sponge and needle counts were inspected for and reported as correct multiple times. The patient tolerated it well. Expect to send her home this evening. She should do well and follow up in the [facility] for staple removal in about 8 days. I discussed all this with the patient and her sister. She will go home on antibiotics for 3 or 4 days. She has her own pain medicines. I told her that she could augment those pain medicines with Advil and expect her to do fine. Should she have any problems with fever, pain, nausea, redness at the incision, she should call. I told her she could take a shower, starting Thursday, to get it wet, pat it dry and put dry dressings on. TD: 10/29/2017 19:32
== END 2017-10-29 14:21 | disposition home or self-care (01) ==
LOC: ED 12:00 → SDS 14:20
PROVIDERS: ATTEND Surgery
PROC: 0WQF0ZZ Repair Abdominal Wall, Open Approach (ICD-10-PCS; principal; 2017-10-29 15:00)
DX: K43.6 Other and unspecified ventral hernia with obstruction, without gangrene (principal); J44.9 Chronic obstructive pulmonary disease, unspecified; Z87.891 Personal history of nicotine dependence
CPT/HCPCS: 36415; 49572; 76705; 80053; 83690; 85025; 85610; 85730; 93005; 96365; 96375; 99283; 99284; A9270; J1170; J3010; J7120

== ENCOUNTER 2017-10-30 09:55 | Emergency (ER) | payer MEDICAID ==
[2017-10-30] MEDS ORDERED: HYDROmorphone 1 MG/ML CARPUJECT IM STA ×2 (11:48→12:29)
[2017-10-30] MEDS ORDERED: ONDANSETRON ODT 4 MG TABLET TL STA (11:49)
--- NOTE | 2017-10-30 11:51 | ED Physician Documentation ---
History of Present Illness - Stated complaint Stated Complaint: POST SX PAIN - Chief complaint Chief Complaint: Abd Pain - History obtained from History obtained from: Patient - History of Present Illness Timing: Enter time (1200), Last night - Additonal information Additional information: 57-year-old female had an incarcerated hernia containing fat yesterday and was operated on yesterday afternoon and discharged to home. She was doing well with the pain when she left the hospital she had some chicken soup and at about midnight she began to have pain that was not relieved by her usual 7.5 mg hydrocodone. She has had unrelenting pain all night. She has passed gas but she is vomiting as well.She has been on 7.5 hydrocodone for chronic sciatica. Review of Systems Constitutional: denies: Fever Eyes: denies: Decreased vision Ears: denies: Ear pain Nose: denies: Congestion Throat: denies: Sore throat Cardiac: denies: Chest pain / pressure Respiratory: denies: Dyspnea, Cough GI: reports: Abdominal Pain, Nausea, Vomiting : denies: Dysuria, Frequency Skin: denies: Rash Musculoskeletal: reports: Back pain. 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 : None HEENT: None Psych: Anxiety Musculoskeletal: Chronic back pain Derm: None - Past Surgical History Past Surgical History: Yes General: Cholecystectomy, Appendectomy, Colonoscopy /AVIONICS SYSTEMS REPAIRER: Hysterectomy - Present Medications Home Medications: Ambulatory Orders Medication Instructions Recorded Confirmed ALPRAZolam [Xanax] 0.25 mg PO TID PRN 09/08/16 10/29/17 Hydrocodone/Acetaminophen 1 tab PO TID PRN MDD 3 tabs 09/08/16 10/29/17 [Hydrocodone-Acetamin 7.5-325] Ascorbic Acid [Vitamin C] 1,000 mg PO DAILY 09/09/16 10/29/17 [place]-3/Dha/Epa/Fish Oil [Fish Oil 1,000 mg PO DAILY 09/09/16 10/29/17 1,000 mg Softgel] Albuterol Sulfate [Proventil Hfa 1 - 2 puffs INH Q4H PRN #1 inhaler 05/29/17 Inhaler] levETIRAcetam [Keppra] 750 mg PO BID #60 tablet 09/16/17 10/29/17 Calcium Carbonate [[id number]] 500 mg PO DAILY 10/29/17 10/29/17 Cholecalciferol (Vitamin D3) 1,000 unit PO DAILY 10/29/17 10/29/17 [Vitamin D3] Gabapentin [Neurontin] 100 mg PO QPM 10/29/17 10/29/17 Multivitamin [Multiple Vitamins] 1 each PO DAILY 10/29/17 10/29/17 - Allergies Allergies/Adverse Reactions: Allergies Allergy/AdvReac Type Severity Reaction Status Date / Time adhesive Allergy Intermediate Hives Verified 10/29/17 12:08 codeine [Codeine] Allergy Hives Verified 10/29/17 12:08 Sulfa (Sulfonamide Allergy Hives Verified 10/29/17 12:08 Antibiotics) chocolate AdvReac Intermediate migraine Uncoded 10/29/17 12:08 - Social History Does the pt smoke?: No Smoking Status: Never smoker Does the pt drink ETOH?: Yes Does the pt have substance abuse?: No - Immunizations Immunizations are current?: Yes - POLST Patient has POLST: No PD ED PE NORMAL - Vitals Vital signs reviewed: Yes (hypertensive mild ) - General General: Alert and oriented X 3, Well developed/nourished, Other (57 y/o female in tears with pain ) - HEENT HEENT: Atraumatic, PERRL, EOMI - Neck Neck: Supple, no meningeal sign, No bony TTP - Cardiac Cardiac: RRR, No murmur - Respiratory Respiratory: No respiratory distress, Clear bilaterally - Abdomen Abdomen: Soft, Other (There is a 4cm right upper quadrant surgical wound that appears well approximated and without inflamation. There is general tenderness to the abdomen good bowel sounds in all 4 quadrants. ) - Back Back: No CVA TTP, No spinal TTP - Derm Derm: Normal color, Warm and dry, No rash - Extremities Extremities: No deformity, No edema - Neuro Neuro: Alert and oriented X 3, No motor deficit, No sensory deficit, Normal speech Eye Opening: Spontaneous Motor: Obeys Commands Verbal: Oriented GCS Score: 15 - Psych Psych: Other (mood is helples and affect is sad. ) Results - Vitals Vitals: Vital Signs - 24 hr 10/30/17 10:10 Temperature 37.0 C Heart Rate 77 Respiratory 20 Rate Blood Pressure 137/74 H O2 Saturation 97 Oxygen O2 Source Room air PD MEDICAL DECISION MAKING - ED course Complexity details: reviewed old records, re-evaluated patient, considered differential, d/w patient ED course: 57-year-old female with chronic sciatica on narcotics chronically had an operative procedure last night and she was unable to control her pain at home. She comes in this morning with pain in the surgical site and she is passing flatus and her wound appears to be without inflammation or direct tenderness. She is administered Dilaudid 1 mg IM and some Zofran with improvement in her pain and she required a second dose and has excellent control of her pain. When she arrived I was concerned about the possibility of pain out of proportion to exam and a surgical complication. This really does not look like a complication. This looks like the patient's poor pain control, in a patient with chronic narcotic use. She is comfortable after the above treatment and no further workup is undertaken. I have encouraged her to take her pain medication when she gets home to stay on top of her pain. Departure - Departure Disposition: , Self Care Clinical Impression: Post-operative pain Condition: Stable Instructions: ED Post Op Pain Follow-Up: Adam Gómez MD [Primary Care Provider] -
[2017-10-30 13:27] VITALS: BP 103/67
== END 2017-10-30 13:27 | disposition home or self-care (01) ==
LOC: ED 09:55
DX: G89.18 Other acute postprocedural pain (principal); Z98.890 Other specified postprocedural states; M54.32 Sciatica, left side; M54.31 Sciatica, right side; J44.9 Chronic obstructive pulmonary disease, unspecified
CPT/HCPCS: 96372; 99283; 99284; J1170; Q0162

== ENCOUNTER 2017-11-17 11:41 | Outpatient (CLI) | payer MEDICAID | END 2017-11-17 11:42 | disposition short-term general hospital (02) | LOC: EMS 11:41 | PROVIDERS: ATTEND Surgery | DX: R07.9 Chest pain, unspecified (principal) | CPT/HCPCS: A0425; A0427 ==

== ENCOUNTER 2017-12-12 16:54 | Outpatient (CLI) | payer MEDICAID | END 2017-12-12 16:55 | disposition short-term general hospital (02) | LOC: EMS 16:54 | PROVIDERS: ATTEND Surgery | DX: R07.9 Chest pain, unspecified (principal); R42 Dizziness and giddiness | CPT/HCPCS: A0425; A0427 ==

== ENCOUNTER 2018-01-01 20:06 | Outpatient (CLI) | payer MEDICAID | END 2018-01-01 20:07 | disposition critical access hospital (66) | LOC: EMS 20:06 | PROVIDERS: ATTEND Surgery | DX: M54.9 Dorsalgia, unspecified (principal); W54.1XXA Struck by dog, initial encounter; W18.39XA Other fall on same level, initial encounter; Y92.009 Unspecified place in unspecified non-institutional (private) residence as the place of occurrence of the external cause | CPT/HCPCS: A0425; A0429 ==

== ENCOUNTER 2018-01-01 20:29 | Emergency (ER) | payer MEDICAID ==
[2018-01-01] MEDS ORDERED: KETOROLAC 60 MG/2 ML VIAL IM STA (21:03)
--- NOTE | 2018-01-01 22:00 | XRAY Preliminary Report ---
Exam: XR CHEST 2 VIEW X-RAY IMPRESSION: Low lung volumes. Otherwise negative. [facility] SITE ID: [id number]
--- NOTE | 2018-01-01 22:00 | XRAY Report ---
EXAM: CHEST RADIOGRAPHY EXAM DATE: 01/01/2018 09:26 PM. CLINICAL HISTORY: Fall, back pain. COMPARISON: 09/15/2017. TECHNIQUE: 2 views. FINDINGS: Lungs/Pleura: The lung volumes are low. No consolidative process or pleural effusion. Negative for pn eumothorax. Mediastinum: Heart and mediastinal contours are unremarkable. Other: None. IMPRESSION: Low lung volumes. Otherwise negative. [facility] Referring Provider Line: [phone] SITE ID: [id number]
--- NOTE | 2018-01-01 22:10 | ED Physician Documentation ---
PD HPI BACK INJURY - Stated complaint Stated Complaint: BACK PAIN - History obtained from History obtained from: Patient, EMS - History of Present Illness Location: Both, Upper Type of injury: Fall Where injury occurred: Park Timing - onset: Today Timing - details: Abrupt onset Quality: Pain, Spasm Worsened by: Moving Similar symptoms before: Has not had sx before Recently seen: Not recently seen - Additional information Additional information: Patient is a 57 year old female who is presenting to the emergency department for back pain. [place] the [place] park [place] a dog hit her from behind knocking her backwards. Patient is complaining of back pain and head pain. patient states that she hit her head on a rock. 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 HEENT: None Psych: Anxiety Musculoskeletal: Chronic back pain Derm: None - Past Surgical History Past Surgical History: Yes General: Cholecystectomy, Appendectomy, Colonoscopy /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 SLIP 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: Hysterectomy - Present Medications Home Medications: Ambulatory Orders Medication Instructions Recorded Confirmed ALPRAZolam [Xanax] 0.25 mg PO TID PRN 09/08/16 10/29/17 Hydrocodone/Acetaminophen 1 tab PO TID PRN MDD 3 tabs 09/08/16 10/29/17 [Hydrocodone-Acetamin 7.5-325] Ascorbic Acid [Vitamin C] 1,000 mg PO DAILY 09/09/16 10/29/17 [place]-3/Dha/Epa/Fish Oil [Fish Oil 1,000 mg PO DAILY 09/09/16 10/29/17 1,000 mg Softgel] Albuterol Sulfate [Proventil Hfa 1 - 2 puffs INH Q4H PRN #1 inhaler 05/29/17 Inhaler] levETIRAcetam [Keppra] 750 mg PO BID #60 tablet 09/16/17 10/29/17 Calcium Carbonate [[id number]-622] 500 mg PO DAILY 10/29/17 10/29/17 Cholecalciferol (Vitamin D3) 1,000 unit PO DAILY 10/29/17 10/29/17 [Vitamin D3] Gabapentin [Neurontin] 100 mg PO QPM 10/29/17 10/29/17 Multivitamin [Multiple Vitamins] 1 each PO DAILY 10/29/17 10/29/17 Cyclobenzaprine [Flexeril] 10 mg PO TID PRN #10 tablet 01/01/18 Lidocaine Patch 5% [Lidoderm Patch] 1 each TOP DAILY #10 patch 01/01/18 - Allergies Allergies/Adverse Reactions: Allergies Allergy/AdvReac Type Severity Reaction Status Date / Time adhesive Allergy Intermediate Hives Verified 01/01/18 20:37 codeine [Codeine] Allergy Hives Verified 01/01/18 20:37 Sulfa (Sulfonamide Allergy Hives Verified 01/01/18 20:37 Antibiotics) chocolate AdvReac Intermediate migraine Uncoded 01/01/18 20:37 - Social History Does the pt smoke?: No Smoking Status: Never smoker Does the pt drink ETOH?: Yes Does the pt have substance abuse?: No - Immunizations Immunizations are current?: Yes - POLST Patient has POLST: No PD ED PE NORMAL - Vitals Vital signs reviewed: Yes - General General: Alert and oriented X 3 - HEENT HEENT: Atraumatic - Cardiac Cardiac: RRR - Respiratory Respiratory: No respiratory distress, Clear bilaterally - Abdomen Abdomen: Soft, Non tender, Non distended - Derm Derm: Normal color, No rash PD ED PE EXPANDED - Back Back: Soft tissue tenderness. No: Vertebral tenderness - Derm Derm: No: Abrasion (s), Bruising Results - Vitals Vitals: Vital Signs - 24 hr 01/01/18 01/01/18 01/01/18 20:34 21:53 22:30 Temperature 36.8 C 37.1 C 36.9 C Heart Rate 76 88 85 Respiratory 20 18 17 Rate Blood Pressure 140/78 H 126/69 105/76 O2 Saturation 95 97 96 01/01/18 23:34 Temperature Heart Rate 84 Respiratory 18 Rate Blood Pressure 142/95 H O2 Saturation 97 Oxygen O2 Source Room air - Rads (name of study) chest x-ray Radiology: Final report received (no acute fracture or dislocation) ct head Radiology: Final report received (no acute intracranial pathology) PD MEDICAL DECISION MAKING - ED course Complexity details: reviewed old records, reviewed results, re-evaluated patient , considered differential, d/w patient ED course: patient was seen and examined at bedside. Patient had bilateral muscular pain but on abrasions, lacerations or other deficits. patient was complaining of headache. Imaging was ordered. When patient returned from imaging she was treated with toradol, tylenol and valium. patient required no further work up and was stable for discharge with outpatient follow up. Departure - Departure Disposition: Home, Self Care Clinical Impression: Back pain Condition: Good Instructions: ANTI-INFLAMMATORY, General Follow-Up: primary,care provider [Other] - Within 3 Days Prescriptions: Cyclobenzaprine [Flexeril] 10 mg PO TID PRN #10 tablet PRN Reason: Spasms Lidocaine Patch 5% [Lidoderm Patch] 1 each TOP DAILY #10 patch Comments: Your diagnostics today were within normal limits. there is no acute fracture or dislocation or intracranial trauma. You should continue with your home medications. You may return to the emergency department at any time for new, worsening or uncontrollable symptoms. Discharge Date/Time: 01/01/18 23:35
[2018-01-01] MEDS ORDERED: diazePAM 5 MG TABLET PO STA (22:11)
[2018-01-01] MEDS ORDERED: ACETAMINOPHEN 500 MG TABLET PO STA (22:11)
--- NOTE | 2018-01-01 22:15 | CT Report ---
EXAM: CT HEAD EXAM DATE: 01/01/2018 09:47 PM. CLINICAL HISTORY: Fall, hit head. COMPARISON: 09/15/2017. TECHNIQUE: Multiaxial CT images were obtained from the foramen magnum to the vertex. Reformats: Coron al. IV contrast: None. In accordance with CT protocol optimization, one or more of the following dose reduction techniques w ere utilized for this exam: automated exposure control, adjustment of mA and/or KV based on patient s ize, or use of iterative reconstructive technique. FINDINGS: Parenchyma: No intraparenchymal hemorrhage. No evidence of mass, midline shift, or CT findings of inf arction. Chandler-white differentiation is distinct. Extraaxial Spaces: Normal for age. No subdural or epidural collections identified. Ventricles: Normal in size and position. Sinuses and Orbits: There is mild paranasal sinus mucosal thickening. No sinus fluid levels. Bones: No evidence of fracture or calvarial defect. Other: None. IMPRESSION: Normal head CT. [facility] Referring Provider Line: [phone] SITE ID: [id number]
--- NOTE | 2018-01-01 22:15 | CT Preliminary Report ---
Exam: CT HEAD W/O IMPRESSION: Normal head CT. [facility] SITE ID: [id number]
[2018-01-01 23:35] VITALS: BP 142/95
== END 2018-01-01 23:35 | disposition home or self-care (01) ==
LOC: EDUNIT# → ED 20:29
DX: M54.9 Dorsalgia, unspecified (principal); R51 Headache; W54.1XXA Struck by dog, initial encounter; Y92.830 Public park as the place of occurrence of the external cause
CPT/HCPCS: 70450; 71046; 96372; 99283; A9270

== ENCOUNTER 2018-03-10 13:24 | Outpatient (CLI) | payer MEDICAID | END 2018-03-10 13:25 | disposition short-term general hospital (02) | LOC: EMS 13:24 | PROVIDERS: ATTEND Surgery | DX: R07.81 Pleurodynia (principal) | CPT/HCPCS: A0425; A0427; A0888; A0999 ==

== ENCOUNTER 2019-02-14 08:15 | Emergency (ER) | payer MEDICAID ==
--- NOTE | 2019-02-14 09:20 | ED Physician Documentation ---
PD HPI SKIN - Stated complaint Stated Complaint: FEET SWOLLEN - Chief complaint Chief Complaint: General - History obtained from History obtained from: Patient - History of Present Illness Timing - onset: How many weeks ago (2-3 weeks of skin rash and itching, with Dx of scabies by PMD. Rx with Permethrin and did not have improvement. Repeated treatment in few days and still having diffuse itching, with now few days of red tender bumps, not quite blisters. These are mainly on lower legs, hands/arms, and feet. The rash is diffuse, with least amount on upper trunk.) Timing - duration: Weeks Timing - details: Gradual onset, Still present, Waxing and waning Location: Bodywide Quality / character: Itchy, Painful, Burning Improved by: No: Other (permethrin topical antiparasitic) Associated symptoms: Myalgias. No: Fever, Headache, Facial swelling, Abd pain, N/V/D Contributing factors: Other (she believes it is scabies, as a neighbor had come for coffee at her house and had similar rash/itching, and then patient developed it too a few days later. But not responding to Permethrin treatment.). No: Exposed to Poison madeline/oak, Recent illness Review of Systems Constitutional: reports: Myalgias, Fatigue. 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: Hysterectomy - Present Medications Home Medications: Ambulatory Orders Medication Instructions Recorded Confirmed ALPRAZolam [Xanax] 0.25 mg PO TID PRN 09/08/16 10/29/17 Hydrocodone/Acetaminophen 1 tab PO TID PRN MDD 3 tabs 09/08/16 10/29/17 [Hydrocodone-Acetamin 7.5-325] Ascorbic Acid [Vitamin C] 1,000 mg PO DAILY 09/09/16 10/29/17 [place]-3/Dha/Epa/Fish Oil [Fish Oil 1,000 mg PO DAILY 09/09/16 10/29/17 1,000 mg Softgel] Albuterol Sulfate [Proventil Hfa 1 - 2 puffs INH Q4H PRN #1 inhaler 05/29/17 10/29/17 Inhaler] levETIRAcetam [Keppra] 750 mg PO BID #60 tablet 09/16/17 10/29/17 Calcium Carbonate [Qqwh-Yzw-194] 500 mg PO DAILY 10/29/17 10/29/17 Cholecalciferol (Vitamin D3) 1,000 unit PO DAILY 10/29/17 10/29/17 [Vitamin D3] Gabapentin [Neurontin] 100 mg PO QPM 10/29/17 10/29/17 Multivitamin [Multiple Vitamins] 1 each PO DAILY 10/29/17 10/29/17 Cyclobenzaprine [Flexeril] 10 mg PO TID PRN #10 tablet 01/01/18 Lidocaine Patch 5% [Lidoderm Patch] 1 each TOP DAILY #10 patch 01/01/18 Alprazolam [Xanax] 0.25 mg PO TID PRN #12 tablet 02/14/19 Cetirizine [ZyrTEC] 10 mg PO DAILY #15 tablet 02/14/19 Hydrocodone/Acetaminophen [[place] 1 each PO QID PRN #16 tablet 02/14/19 7.5-325 Tablet] dexAMETHasone [Decadron] 4 mg PO DAILY #10 tablet 02/14/19 - Allergies Allergies/Adverse Reactions: Allergies Allergy/AdvReac Type Severity Reaction Status Date / Time adhesive Allergy Intermediate Hives Verified 02/14/19 08:22 codeine [Codeine] Allergy Hives Verified 02/14/19 08:22 Sulfa (Sulfonamide Allergy Hives Verified 02/14/19 08:22 Antibiotics) chocolate AdvReac Intermediate migraine Uncoded 02/14/19 08:22 - Social History Does the pt smoke?: No Smoking Status: Never smoker Does the pt drink ETOH?: Yes Does the pt have substance abuse?: No - Immunizations Immunizations are current?: Yes - POLST Patient has POLST: No PD ED PE NORMAL - Vitals Vital signs reviewed: Yes - General General: Alert and oriented X 3, Well developed/nourished, Other (very anxious and also seems very bothered by the itchiness of the rash. ) - HEENT HEENT: Pharynx benign, Dentition benign - Cardiac Cardiac: RRR, No murmur - Respiratory Respiratory: Clear bilaterally - Abdomen Abdomen: Soft, Non tender - Derm Derm: Normal color, Warm and dry, Other (diffuse rash, but mostly to lower legs and arms, with blotchy nonvesicular rash. There are also tender red bumps mostly on legs/feet but also hands/lower arms. ) - Extremities Extremities: No tenderness to palpate, Normal ROM s pain, No edema, No calf tenderness / cord Results - Vitals Vitals: Vital Signs - 24 hr 02/14/19 02/14/19 08:19 10:47 Temperature 36.3 C L Heart Rate 106 H 91 Respiratory 26 H 20 Rate Blood Pressure 147/110 H 98/68 O2 Saturation 100 97 Oxygen O2 Source Room air PD MEDICAL DECISION MAKING - ED course Complexity details: considered differential (Consider immune reaction. She is not still on Keppra so would not be that. No other suspect medicines that are new.), d/w patient Departure - Departure Disposition: 01 Home, Self Care Clinical Impression: Acute dermatitis Condition: Stable Record reviewed to determine appropriate education?: Yes Follow-Up: Adam Gómez MD [Primary Care Provider] - [facility] [Provider Group] Prescriptions: Alprazolam [Xanax] 0.25 mg PO TID PRN #12 tablet PRN Reason: Anxiety Cetirizine [ZyrTEC] 10 mg PO DAILY #15 tablet dexAMETHasone [Decadron] 4 mg PO DAILY #10 tablet Hydrocodone/Acetaminophen [[place] 7.5-325 Tablet] 1 each PO QID PRN #16 tablet PRN Reason: Pain Comments: I wrote a prescription for your Xanax and hydrocodone for the next several days until you can get your refills from Dr. Adam Gómez. For the skin rash and tenderness, take Decadron steroid daily for the next 7 to 10 days and also cetirizine antihistamine. He could add Benadryl 25 mg every 6 hours if needed that may help with the symptoms (even though is not itchy, it can help with some of the skin reaction that is tender). Follow-up with your primary care or dermatology even better and call for an appointment. I think this is more of an immune reaction and should improve with the steroids. Discharge Date/Time: 02/14/19 11:14
[2019-02-14] MEDS ORDERED: HYDROmorphone 1 MG/ML CARPUJECT IM STA ×2 (09:37→10:29)
[2019-02-14] MEDS ORDERED: CHERRY SYRUP 10 ML UDC PO ONE (09:37)
[2019-02-14] MEDS ORDERED: diazePAM 5 MG TABLET PO STA (09:37)
[2019-02-14] MEDS ORDERED: diphenhydrAMINE INJ 50 MG/ML VIAL IM STA (09:37)
[2019-02-14] MEDS ORDERED: DEXAMETHASONE 10 MG/ML VIAL PO STA (09:37)
[2019-02-14] MEDS ORDERED: NAPROXEN 250 MG TABLET PO STA (10:29)
[2019-02-14 10:48] VITALS: BP 98/68
== END 2019-02-14 11:14 | disposition home or self-care (01) ==
LOC: ED 08:15
DX: L30.9 Dermatitis, unspecified (principal)
CPT/HCPCS: 96372; 99283; 99284; A9270; J1170; J1200

== ENCOUNTER 2019-03-26 21:47 | Emergency (ER) | payer MEDICAID ==
--- NOTE | 2019-03-26 22:17 | ED Physician Documentation ---
PD HPI SKIN - Stated complaint Stated Complaint: POSS CHEM REACTION/PRIOR SCABIES - Chief complaint Chief Complaint: Wound - History obtained from History obtained from: Patient - History of Present Illness Timing - onset: How many days ago (has had some itching for few weeks and treated for possible scabies twice. Had felt improved. Was spraying her apt with chemical for scabies and had onset burning feeling of skin. Thinks she is having reaction from the spray. Burning and not itching per se.) Timing - details: Gradual onset, Still present Location: Bodywide Quality / character: Burning. 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 HEENT: None Psych: Anxiety Musculoskeletal: Chronic back pain Derm: None - Past Surgical History Past Surgical History: Yes General: Cholecystectomy, Appendectomy, Colonoscopy /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 TURNER: Hysterectomy - Present Medications Home Medications: Ambulatory Orders Medication Instructions Recorded Confirmed ALPRAZolam [Xanax] 0.25 mg PO TID PRN 09/08/16 10/29/17 Hydrocodone/Acetaminophen 1 tab PO TID PRN MDD 3 tabs 09/08/16 10/29/17 [Hydrocodone-Acetamin 7.5-325] Ascorbic Acid [Vitamin C] 1,000 mg PO DAILY 09/09/16 10/29/17 [place]-3/Dha/Epa/Fish Oil [Fish Oil 1,000 mg PO DAILY 09/09/16 10/29/17 1,000 mg Softgel] Albuterol Sulfate [Proventil Hfa 1 - 2 puffs INH Q4H PRN #1 inhaler 05/29/17 10/29/17 Inhaler] levETIRAcetam [Keppra] 750 mg PO BID #60 tablet 09/16/17 10/29/17 Calcium Carbonate [[id number]-[id number]-779] 500 mg PO DAILY 10/29/17 10/29/17 Cholecalciferol (Vitamin D3) 1,000 unit PO DAILY 10/29/17 10/29/17 [Vitamin D3] Gabapentin [Neurontin] 100 mg PO QPM 10/29/17 10/29/17 Multivitamin [Multiple Vitamins] 1 each PO DAILY 10/29/17 10/29/17 Cyclobenzaprine [Flexeril] 10 mg PO TID PRN #10 tablet 01/01/18 Lidocaine Patch 5% [Lidoderm Patch] 1 each TOP DAILY #10 patch 01/01/18 Alprazolam [Xanax] 0.25 mg PO TID PRN #12 tablet 02/14/19 Cetirizine [ZyrTEC] 10 mg PO DAILY #15 tablet 02/14/19 Hydrocodone/Acetaminophen [[place] 1 each PO QID PRN #16 tablet 02/14/19 7.5-325 Tablet] dexAMETHasone [Decadron] 4 mg PO DAILY #10 tablet 02/14/19 Cetirizine [ZyrTEC] 10 mg PO DAILY #15 tablet 03/26/19 Hydrocodone/Acetaminophen [[place] 1 each PO Q6H PRN #15 tablet 03/26/19 5-325 Tablet] dexAMETHasone [Decadron] 4 mg PO DAILY #7 tablet 03/26/19 - Allergies Allergies/Adverse Reactions: Allergies Allergy/AdvReac Type Severity Reaction Status Date / Time adhesive Allergy Intermediate Hives Verified 03/26/19 22:01 codeine [Codeine] Allergy Hives Verified 03/26/19 22:01 Sulfa (Sulfonamide Allergy Hives Verified 03/26/19 22:01 Antibiotics) chocolate AdvReac Intermediate migraine Uncoded 03/26/19 22:01 - Social History Does the pt smoke?: No Smoking Status: Never smoker Does the pt drink ETOH?: Yes Does the pt have substance abuse?: No - Immunizations Immunizations are current?: Yes - POLST Patient has POLST: No PD ED PE NORMAL - Vitals Vital signs reviewed: Yes - General General: Alert and oriented X 3, No acute distress, Well developed/nourished - HEENT HEENT: Pharynx benign - Neck Neck: Supple, no meningeal sign, No adenopathy - Respiratory Respiratory: Clear bilaterally - Derm Derm: Normal color, Warm and dry, Other (some fine redness on forearms. No excoriations at this time. No pustules. Legs with some scratch cai. ) Results - Vitals Vitals: Oxygen O2 Source Room air PD MEDICAL DECISION MAKING - ED course Complexity details: reviewed old records, considered differential (I don't think she has scabies again (if did at first is reasonably likely). Will treat as dermatitis now. ), d/w patient Departure - Departure Disposition: Home, Self Care Clinical Impression: Dermatitis Condition: Stable Record reviewed to determine appropriate education?: Yes Instructions: ED Dermatitis Non Specific Rash Follow-Up: [facility] [Provider Group] Prescriptions: Cetirizine [ZyrTEC] 10 mg PO DAILY #15 tablet dexAMETHasone [Decadron] 4 mg PO DAILY #7 tablet Hydrocodone/Acetaminophen [[place] 5-325 Tablet] 1 each PO Q6H PRN #15 tablet PRN Reason: Pain Comments: Use the Decadron steroid daily for a week. Cetirizine antihistamine daily for 1 to 2 weeks. Tylenol if needed for pains; add hydrocodone for pains as needed. Recheck if not improved over the next several days/week. Could also follow up with Dermatology. Discharge Date/Time: 03/26/19 23:44
[2019-03-26] MEDS ORDERED: DEXAMETHASONE 10 MG/ML VIAL PO STA (23:18)
[2019-03-26] MEDS ORDERED: HYDROcod/ACETAM 5/325 MG TABLET PO STA (23:18)
[2019-03-26] MEDS ORDERED: CHERRY SYRUP 10 ML UDC PO ONE (23:18)
[2019-03-26] MEDS ORDERED: diphenhydrAMINE 25 MG CAPSULE PO STA (23:18)
[2019-03-26 23:44] VITALS: BP 113/73
== END 2019-03-26 23:44 | disposition home or self-care (01) ==
LOC: ED 21:47
DX: L30.9 Dermatitis, unspecified (principal)
CPT/HCPCS: 99283; 99284; A9270

== ENCOUNTER 2020-01-30 22:50 | Outpatient (CLI) | payer MEDICAID | END 2020-01-30 22:51 | disposition critical access hospital (66) | LOC: EMS 22:50 | PROVIDERS: ATTEND Surgery | DX: M25.552 Pain in left hip (principal) | CPT/HCPCS: A0425; A0427; A0999 ==

== ENCOUNTER 2020-01-30 23:10 | Emergency (ER) | payer MEDICAID ==
[2020-01-31] MEDS ORDERED: KETOROLAC 30 MG/ML VIAL IVP STA (00:57)
[2020-01-31] MEDS ORDERED: DEXAMETHASONE 10 MG/ML VIAL IVP STA (01:04)
--- NOTE | 2020-01-31 01:15 | ED Physician Documentation ---
PD HPI LOWER EXT INJURY - Stated complaint Stated Complaint: HIP POPPED - Chief complaint Chief Complaint: Ext Problem - History obtained from History obtained from: Patient, EMS - History of Present Illness PD HPI LOW EXT INJURY LOCATION: Left, Hip Type of injury: Twist Where injury occurred: Home Timing - onset: Today Timing - duration: Minutes Timing - details: Abrupt onset, Still present Improved by: Rest, Immobilization Worsened by: Moving, Palpating Associated symptoms: No: Weakness, Numbness, Tingling Contributing factors: No: Anticoagulated Similar symptoms before: Diagnosis (arthritis) Recently seen: Clinic - Additional information Additional information: 59-year-old female with a history of osteoarthritis states that she bent over wrong in her home today felt a pop in her left hip and has severe pain associated with this. She is not able to bear weight and she is brought to the hospital by ambulance receiving 50 mcg of fentanyl intravenously on the way here. She arrives complaining bitterly of pain crying loudly and having pain with any movement.The patient is on pain management and has a specific recommendation on her JUAN C form to not be given intravenous narcotics in the emergency department from 2014. Review of Systems Constitutional: denies: Fever Eyes: denies: Decreased vision Ears: denies: Ear pain Nose: denies: Congestion Respiratory: denies: Cough GI: denies: Vomiting PD PAST MEDICAL HISTORY - Past Medical History Past Medical History: Yes Cardiovascular: None Respiratory: COPD Endocrine/Autoimmune: None GI: None OUTSOLE SPLICER: None : None HEENT: None Psych: Anxiety Musculoskeletal: Chronic back pain Derm: None - Past Surgical History Past Surgical History: Yes General: Cholecystectomy, Appendectomy, Colonoscopy /OUTSOLE SPLICER: Hysterectomy - Present Medications Home Medications: Ambulatory Orders Medication Instructions Recorded Confirmed ALPRAZolam [Xanax] 0.25 mg PO TID PRN 09/08/16 10/29/17 Hydrocodone/Acetaminophen 1 tab PO TID PRN MDD 3 tabs 09/08/16 10/29/17 [Hydrocodone-Acetamin 7.5-325] Ascorbic Acid [Vitamin C] 1,000 mg PO DAILY 09/09/16 10/29/17 Linneus-3/Dha/Epa/Fish Oil [Fish Oil 1,000 mg PO DAILY 09/09/16 10/29/17 1,000 mg Softgel] Albuterol Sulfate [Proventil Hfa 1 - 2 puffs INH Q4H PRN #1 inhaler 05/29/17 10/29/17 Inhaler] levETIRAcetam [Keppra] 750 mg PO BID #60 tablet 09/16/17 10/29/17 Calcium Carbonate [Bosy-Vac-113] 500 mg PO DAILY 10/29/17 10/29/17 Cholecalciferol (Vitamin D3) 1,000 unit PO DAILY 10/29/17 10/29/17 [Vitamin D3] Gabapentin [Neurontin] 100 mg PO QPM 10/29/17 10/29/17 Multivitamin [Multiple Vitamins] 1 each PO DAILY 10/29/17 10/29/17 Cyclobenzaprine [Flexeril] 10 mg PO TID PRN #10 tablet 01/01/18 Lidocaine Patch 5% [Lidoderm Patch] 1 each TOP DAILY #10 patch 01/01/18 Alprazolam [Xanax] 0.25 mg PO TID PRN #12 tablet 02/14/19 Cetirizine [ZyrTEC] 10 mg PO DAILY #15 tablet 02/14/19 Hydrocodone/Acetaminophen [[place] 1 each PO QID PRN #16 tablet 02/14/19 7.5-325 Tablet] dexAMETHasone [Decadron] 4 mg PO DAILY #10 tablet 02/14/19 Cetirizine [ZyrTEC] 10 mg PO DAILY #15 tablet 03/26/19 Hydrocodone/Acetaminophen [[place] 1 each PO Q6H PRN #15 tablet 03/26/19 5-325 Tablet] dexAMETHasone [Decadron] 4 mg PO DAILY #7 tablet 03/26/19 - Allergies Allergies/Adverse Reactions: Allergies Allergy/AdvReac Type Severity Reaction Status Date / Time adhesive Allergy Intermediate Hives Verified 01/30/20 23:14 codeine [Codeine] Allergy Hives Verified 01/30/20 23:14 Sulfa (Sulfonamide Allergy Hives Verified 01/30/20 23:14 Antibiotics) chocolate AdvReac Intermediate migraine Uncoded 01/30/20 23:14 - Social History Does the pt smoke?: No Smoking Status: Never smoker Does the pt drink ETOH?: Yes Does the pt have substance abuse?: No - Immunizations Immunizations are current?: Yes - POLST Patient has POLST: No PD ED PE NORMAL - Vitals Vital signs reviewed: Yes (normal ) - General General: Alert and oriented X 3, Well developed/nourished, Other (crying loudly in pain ) - HEENT HEENT: Atraumatic, PERRL, EOMI - Respiratory Respiratory: No respiratory distress - Derm Derm: Normal color, Warm and dry, No rash - Extremities Extremities: No deformity, No edema, Other (There is pain to palpation over the trochanter and with movement of the hip joint. There is no shortening or rotation of the leg to suggest displaced fracture. 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 technologist 2-12 intact, No motor deficit, No sensory deficit, Normal speech Eye Opening: Spontaneous Motor: Obeys Commands Verbal: Oriented GCS Score: 15 - Psych Psych: Other (mood is foul and the affect is labile) Results - Vitals Vitals: Vital Signs - 24 hr 01/30/20 01/31/20 23:14 02:00 Temperature 36.8 C Heart Rate 85 75 Respiratory 16 18 Rate Blood Pressure 97/85 H 125/75 O2 Saturation 99 97 Oxygen O2 Source Room air - Rads (name of study) hip L Radiology: Prelim report reviewed (Impression: No acute fracture or dislocation no significant arthritic changes the soft tissues are unremarkable.), EMP read indepedently, See rad report PD MEDICAL DECISION MAKING - ED course Complexity details: reviewed old records, reviewed results, re-evaluated patient, considered differential, d/w patient ED course: 59-year-old female with severe left hip pain does not have evidence of a fracture on x-ray or physical examination. She does have pain in her hip and she comes to the emergency department crying loudly and with excessive pain behavior. She had been administered fentanyl intravenously in route to the hospital. I discussed with the patient her pain management she acknowledges that she understood the reluctance for intravenous narcotic. She is administered Decadron and Toradol with some improvement. She has pain medication for her chronic pain at home. Departure - Departure Disposition: 01 Home, Self Care Clinical Impression: Hip pain, chronic Qualifiers: Laterality: bilateral Qualified Code(s): M25.551 - Pain in right hip Hip pain, acute Qualifiers: Laterality: left Qualified Code(s): M25.552 - Pain in left hip Condition: Stable Instructions: ED Sprain Hip Follow-Up: Adam Gómez MD [Primary Care Provider] - Discharge Date/Time: 01/31/20 02:00
[2020-01-31 02:06] VITALS: BP 125/75
--- NOTE | 2020-01-31 08:24 | XRAY Report ---
PROCEDURE: Hip w/Pelvis 2-3V LT INDICATIONS: stretching injury with a "pop" TECHNIQUE: AP pelvis with lateral view(s) of the left hip(s). COMPARISON: None. FINDINGS: Bones: No fractures or dislocations. Mild osteoarthritic changes are seen in bilateral hip joints. N o evidence of avascular necrosis. Pelvic ring appears intact. No suspicious bony lesions. Soft tissues: The visualized bowel gas pattern is normal. No suspicious soft tissue calcifications. IMPRESSION: No acute left hip fracture or dislocation. Very mild bilateral hip joint osteoarthritis. No discrepancies from preliminary reading. Reviewed by: Bhaskar Strauss MD on 01/31/2020 8:23 AM PDT Approved by: Bhaskar Strauss MD on 01/31/2020 8:23 AM PDT Station ID: [id number]
== END 2020-01-31 02:00 | disposition home or self-care (01) ==
LOC: EDUNIT# → ED 23:10
DX: M16.0 Bilateral primary osteoarthritis of hip (principal)
CPT/HCPCS: 96374; 99284

== ENCOUNTER 2020-08-08 11:51 | Outpatient (CLI) | payer MEDICAID ==
--- NOTE | 2020-08-08 13:53 | XRAY Report ---
PROCEDURE: Shoulder 3 View RT INDICATIONS: R SHOULDER PX TECHNIQUE: 3 views of the shoulder were acquired. COMPARISON: None. FINDINGS: Bones: No fractures or dislocations. Mild right acromioclavicular joint osteoarthritic changes are s een. No suspicious bony lesions. Visualized ribs appear intact. Soft tissues: No suspicious soft tissue calcifications. IMPRESSION: Mild acromioclavicular joint osteoarthritis. No fracture or dislocation. Reviewed by: Bhaskar Strauss MD on 08/08/2020 1:52 PM PST Approved by: Bhaskar Strauss MD on 08/08/2020 1:52 PM PST Station ID: [id number]
--- NOTE | 2020-08-08 13:53 | XRAY Report ---
PROCEDURE: Lumbar Spine 2 View INDICATIONS: LOW BACK PX TECHNIQUE: 2 views of the lumbar spine were acquired. COMPARISON: None. FINDINGS: Bones: 5 [id number]-[id number] vertebrae are present. There is mild leftward curvature of lumbar spine tenisha tered at L3 level. Degenerative endplate changes and bilateral facet arthrosis throughout lumbar spin e is seen. No vertebral body compression fractures. No suspicious bony lesions. Soft tissues: Overlying bowel gas pattern is normal. No suspicious soft tissue calcifications. IMPRESSION: No lumbar spine fracture or dislocation. Very mild leftward scoliosis of lumbar spine ce ntered at L3 level. Degenerative disc disease throughout lumbar spine. Reviewed by: Bhaskar Strauss MD on 08/08/2020 1:51 PM PST Approved by: Bhaskar Strauss MD on 08/08/2020 1:51 PM PST Station ID: [id number]
== END 2020-08-08 23:59 | disposition home or self-care (01) ==
LOC: DI.N 11:51
PROVIDERS: ATTEND Internal Medicine
DX: M19.011 Primary osteoarthritis, right shoulder (principal); M51.36 Other intervertebral disc degeneration, lumbar region; M41.86 Other forms of scoliosis, lumbar region

== ENCOUNTER 2020-08-17 13:24 | Outpatient (CLI) | payer MEDICAID ==
--- NOTE | 2020-08-17 13:59 | XRAY Report ---
PROCEDURE: Chest 2 View X-Ray INDICATIONS: COPD TECHNIQUE: 2 view(s) of the chest. COMPARISON: None. FINDINGS: Surgical changes and devices: None. Lungs and pleura: No pleural effusions or pneumothorax. Lungs are clear. Mediastinum: Mediastinal contours are normal. Heart size is normal. Bones and chest wall: No suspicious bony abnormalities. Soft tissues appear unremarkable. IMPRESSION: Large lung volumes, no pneumonia or neoplasm found. Reviewed by: Eliseo Ernandez MD on 08/17/2020 1:58 PM [facility] Approved by: Eliseo Ernandez MD on 08/17/2020 1:58 PM [facility] Station ID: [id number]
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
== END 2020-08-17 13:25 | disposition home or self-care (01) ==
LOC: DI.N 13:24
PROVIDERS: ATTEND Internal Medicine
DX: J44.9 Chronic obstructive pulmonary disease, unspecified (principal)

== ENCOUNTER 2021-03-24 16:02 | Outpatient (CLI) | payer MEDICAID ==
--- NOTE | 2021-03-24 16:39 | XRAY Report ---
PROCEDURE: Shoulder 2 View RT INDICATIONS: PAIN IN RIGHT SHOULDER TECHNIQUE: 2 views of the shoulder were acquired. COMPARISON: 08/08/2020 FINDINGS: Bones: No fractures or dislocations. No suspicious bony lesions. Visualized ribs appear intact. M ild degenerative changes are seen, particularly involving the acromioclavicular joint. Soft tissues: No suspicious soft tissue calcifications. The visualized lung demonstrates a normal a ppearance. IMPRESSION: Mild degenerative changes are seen by plain film. If it would be helpful for clinical management decision making, please consider a dedicated, schedule d shoulder MRI for further evaluation (assuming that there is no contraindication). Reviewed by: Gerard Arroyo MD on 03/24/2021 3:38 PM PO[facility] Approved by: Gerard Arroyo MD on 03/24/2021 3:38 PM POONAM Station ID: [id number]
== END 2021-03-24 16:03 | disposition home or self-care (01) ==
LOC: DI.N 16:02
PROVIDERS: ATTEND Nurse Practitioner
DX: M19.011 Primary osteoarthritis, right shoulder (principal)

== ENCOUNTER 2023-08-20 12:59 | Outpatient (CLI) | payer MEDICAID, MEDICARE ==
--- NOTE | 2023-08-20 14:23 | XRAY Report ---
PROCEDURE: Chest 2V INDICATIONS: COPD COUGH TECHNIQUE: 2 views of the chest were acquired. COMPARISON: Chest radiograph 08/17/2020 FINDINGS: Surgical changes and devices: None. Lungs and pleura: No pleural effusions or pneumothorax. Lung volumes are slightly low, but lungs are clear. Mediastinum: Mediastinal contours appear normal. Heart size is normal. Bones and chest wall: No suspicious bony lesions. Overlying soft tissues appear unremarkable. IMPRESSION: Lung volumes are slightly low, but lungs are clear Reviewed by: Aranza Villa MD on 08/20/2023 2:22 PM PST Approved by: Aranza Villa MD on 08/20/2023 2:22 PM PST Station ID: [id number]
== END 2023-08-20 13:00 | disposition home or self-care (01) ==
LOC: DI.N 12:59
PROVIDERS: ATTEND Internal Medicine
DX: R05.9 Cough, unspecified (principal); J44.9 Chronic obstructive pulmonary disease, unspecified

== ENCOUNTER 2023-08-20 13:56 | Outpatient (CLI) | payer MEDICAID, MEDICARE ==
--- NOTE | 2023-08-21 11:36 | Mammography Report ---
BILATERAL DIGITAL SCREENING MAMMOGRAM 3D/2D: 08/20/2023 CLINICAL: Routine screening. Comparison is made to exam dated: 01/17/2009 mammogram - [facility]. Both breasts are heterogeneously dense, which may obscure small masses (category c / 51-75% glandular tissue). No significant masses, calcifications, or other findings are seen in either breast. There has been no significant interval change. IMPRESSION: NEGATIVE There is no mammographic evidence of malignancy. A 1 year screening mammogram is recommended. Based on the Tyrer Cuzick model (a risk assessment model) the patients lifetime risk is 11.4% and he r 10 year risk is 5.2%. According to the ACR, ACS, and NCCN guidelines, an annual breast MRI exam ana paula ng with mammogram is recommended if the patients lifetime risk is 20% or greater. This exam was interpreted at Station ID: [id number]. NOTE: For mammograms, a report in lay terms will be sent to the patient. Approximately 15% of breast malignancies will not be visualized mammographically. In the management of a palpable breast mass, a negative mammogram must not discourage biopsy of a clinically suspicious lesion. Electronically Signed By: Mic marie/ghada:08/20/2023 15:40:48 letter sent: No_Letter ACR BI-RADS Category 1: Negative 3341F PARENCHYMAL PATTERN: (D) - The breast(s) demonstrate(s) heterogeneously dense fibroglandular manuel mills. BI-RADS CATEGORY: (1) - 1 Mammogram [id number] 1 year screening LATERALITY: (B)
== END 2023-08-20 13:57 | disposition home or self-care (01) ==
LOC: DI.N 13:56
PROVIDERS: ATTEND Internal Medicine
DX: Z12.31 Encounter for screening mammogram for malignant neoplasm of breast (principal); R92.333 Mammographic heterogeneous density, bilateral breasts